=== PATIENT | female | born 1945 | race Caucasian/White ===

== ENCOUNTER 2016-04-26 14:46 | Outpatient (CLI) | payer MEDICARE, OTHER | END 2016-04-26 14:47 | disposition home or self-care (01) | DX: R51 Headache (principal); R53.83 Other fatigue; H92.02 Otalgia, left ear ==

== ENCOUNTER 2016-05-18 21:01 | Outpatient (CLI) | payer MEDICARE, OTHER | END 2016-05-18 21:02 | disposition home or self-care (01) | DX: M79.661 Pain in right lower leg (principal) ==

== ENCOUNTER 2016-07-13 12:25 | Outpatient (CLI) | payer MEDICARE, OTHER | END 2016-07-13 12:26 | disposition short-term general hospital (02) | LOC: EMS 12:25 | PROVIDERS: ATTEND Surgery | DX: R07.89 Other chest pain (principal) | CPT/HCPCS: A0425; A0427 ==

== ENCOUNTER 2016-07-21 15:25 | Outpatient (CLI) | payer MEDICARE, OTHER ==
--- NOTE | 2016-07-22 13:33 | Ultrasound Report ---
RENAL ULTRASOUND: 07/21/2016 CLINICAL INDICATION: Atypical pain. TECHNIQUE: Real-time sonographic vascular imaging was performed by the intake counselor through the retrop eritoneum utilizing both color-flow and Doppler spectral analysis. Multiple representative phlebotomy services static im ages were saved for review. FINDINGS: The right kidney measures 10.6 x 4.3 x 3.7 cm, and the left kidney measures 11.8 x 5.1 x 4 .6 cm. Both kidneys demonstrate normal renal echotexture. No hydronephrosis, focal renal lesion, or p erinephric collection is present. The abdominal aorta is normal in caliber, measuring 2.1 x 2.0 x 1.8 cm. The iliacs are normal in chris cyala. No free fluid is seen. Prevoid, the urinary bladder measures 4.5 x 4.2 x 6.3 cm, yielding a prevoid volume of 62 mL. Bilater al ureteral jets are visualized. The bladder wall appears normal. No postvoid residual is present. IMPRESSION: NORMAL RETROPERITONEAL ULTRASOUND. NO EVIDENCE OF HYDRONEPHROSIS OR ABDOMINAL AORTIC ANE URYSM. JOB #: [id number] EXT JOB #:[id number]
== END 2016-07-21 15:26 | disposition home or self-care (01) ==
LOC: DI 15:25
PROVIDERS: ATTEND Physician Assistant Medical
DX: R07.89 Other chest pain (principal)
CPT/HCPCS: 76770

== ENCOUNTER 2016-12-23 11:14 | Outpatient (CLI) | payer MEDICARE, OTHER | END 2016-12-23 11:15 | disposition home or self-care (01) | LOC: LAB.F 11:14 | PROVIDERS: ATTEND Physician Assistant Medical | DX: E03.9 Hypothyroidism, unspecified (principal) | CPT/HCPCS: 36415; 84443 ==

== ENCOUNTER 2017-01-12 09:04 | Outpatient (CLI) | payer MEDICARE, OTHER ==
[2017-01-12 12:28] LABS: ALBUMIN/GLOBULIN RATIO 1.3 (1.0-2.2); BILIRUBIN,TOTAL 0.7 mg/dL (0.2-1.0); CALCIUM 8.9 mg/dL (8.5-10.3); CREATININE 0.8 mg/dL (0.4-1.0); POTASSIUM 3.8 mmol/L (3.5-5.0); TOTAL PROTEIN 7.2 g/dL (6.7-8.2)
[2017-01-12 12:41] LABS: HEMOGLOBIN A1C 0.65 g/dL
== END 2017-01-12 09:05 | disposition home or self-care (01) ==
LOC: LAB.F 09:04
PROVIDERS: ATTEND Family Medicine
DX: R51 Headache (principal); E11.9 Type 2 diabetes mellitus without complications; I10 Essential (primary) hypertension; E03.9 Hypothyroidism, unspecified
CPT/HCPCS: 36415; 80053; 83036

== ENCOUNTER 2017-03-14 10:11 | Outpatient (CLI) | payer MEDICARE, OTHER ==
[2017-03-14 20:05] LABS: ALBUMIN 4.1 g/dL (3.2-5.5); ALBUMIN/GLOBULIN RATIO 1.4 (1.0-2.2); ALKALINE PHOSPHATASE 73 IU/L (42-121); ALT ALANINE AMINOTRANSFERASE 18 IU/L (10-60); AST ASPARTATE AMINOTRANSFERASE 22 IU/L (10-42); BILIRUBIN,TOTAL 0.5 mg/dL (0.2-1.0); BUN - BLOOD UREA NITROGEN 16 mg/dL (6-20); CALCIUM 8.9 mg/dL (8.5-10.3); CARBON DIOXIDE - CO2 23 mmol/L (21-32); CHLORIDE 106 mmol/L (101-111); CREATININE 0.9 mg/dL (0.4-1.0); GFR - MDRD 62 (>89); GLUCOSE 99 mg/dL (70-100); MAGNESIUM 1.9 mg/dL (1.7-2.8); SODIUM 137 mmol/L (135-145); TOTAL PROTEIN 7.1 g/dL (6.7-8.2)
== END 2017-03-14 10:12 | disposition home or self-care (01) ==
LOC: LAB.F 10:11
PROVIDERS: ATTEND Physician Assistant Medical
DX: R00.0 Tachycardia, unspecified (principal); I10 Essential (primary) hypertension
CPT/HCPCS: 36415; 80053; 83735; 84443

== ENCOUNTER 2017-09-15 11:24 | Outpatient (CLI) | payer MEDICARE, OTHER | END 2017-09-15 11:25 | disposition home or self-care (01) | LOC: LAB.F 11:24 | PROVIDERS: ATTEND Physician Assistant Medical | DX: E03.9 Hypothyroidism, unspecified (principal); R61 Generalized hyperhidrosis | CPT/HCPCS: 36415; 84443 ==

== ENCOUNTER 2017-10-24 10:45 | Outpatient (CLI) | payer MEDICARE, OTHER ==
[2017-10-25 19:31] LABS: FREE T4 (FREE THYROXINE) 1.14 ng/dL (0.58-1.64)
[2017-10-25 19:33] LABS: TOTAL T3 0.78 ng/mL (0.87-1.78)
== END 2017-10-24 10:46 | disposition home or self-care (01) ==
LOC: LAB.F 10:45
PROVIDERS: ATTEND Physician Assistant Medical
DX: E03.9 Hypothyroidism, unspecified (principal)
CPT/HCPCS: 36415; 84439; 84443; 84480; 84481

== ENCOUNTER 2017-12-18 13:40 | Outpatient (CLI) | payer MEDICARE, OTHER | END 2017-12-18 13:41 | disposition home or self-care (01) | LOC: LAB.F 13:40 | PROVIDERS: ATTEND Physician Assistant Medical | DX: E03.9 Hypothyroidism, unspecified (principal) | CPT/HCPCS: 36415; 84443 ==

== ENCOUNTER 2018-04-30 09:02 | Outpatient (CLI) | payer MEDICARE, OTHER ==
[2018-04-30 18:34] LABS: BASOPHILS # (AUTO) 0.1 10^3/uL (0.0-0.1); BASOPHILS % (AUTO) 1.1 %; EOSINOPHILS # (AUTO) 0.2 10^3/uL (0.0-0.7); EOSINOPHILS % (AUTO) 3.9 %; HGB - HEMOGLOBIN 13.9 g/dL (12.0-16.0); LYMPHOCYTES # (AUTO) 1.2 10^3/uL (1.5-3.5); LYMPHOCYTES % (AUTO) 23.7 %; MEAN CORPUSCULAR HEMOGLOBIN 30.4 pg (27.0-31.0); MEAN CORPUSCULAR HGB CONC 32.8 g/dL (32.0-36.0); MEAN CORPUSCULAR VOLUME 92.7 fL (81.0-99.0); MEAN PLATELET VOLUME 10.4 fL (7.9-10.8); MONOCYTES # (AUTO) 0.5 10^3/uL (0.0-1.0); MONOCYTES % (AUTO) 9.1 %; NEUTROPHILS # (AUTO) 3.1 10^3/uL (1.5-6.6); NEUTROPHILS % (AUTO) 62.2 %; PLT - PLATELET COUNT 225 10^3/uL (130-450); RED BLOOD COUNT 4.56 10^6/uL (4.20-5.40); RED CELL DISTRIBUTION WIDTH 13.5 % (12.0-15.0)
[2018-04-30 18:48] LABS: ALBUMIN 3.7 g/dL (3.2-5.5); ALBUMIN/GLOBULIN RATIO 1.2 (1.0-2.2); BILIRUBIN,TOTAL 0.6 mg/dL (0.2-1.0); CREATININE 0.8 mg/dL (0.4-1.0); TOTAL PROTEIN 6.7 g/dL (6.7-8.2)
[2018-04-30 19:39] LABS: CREATININE,URINE 169.1 mg/dL; MICROALBUMIN,URINE 2.2 mg/dL (0-300.0)
[2018-04-30 20:43] LABS: HB2 TOTAL 14.6 g/dL; HEMOGLOBIN A1C 0.6 g/dL; HEMOGLOBIN A1C % 5.9 % (4.6-6.2)
== END 2018-04-30 09:03 | disposition home or self-care (01) ==
LOC: LAB.F 09:02
PROVIDERS: ATTEND Physician Assistant Medical
DX: E03.9 Hypothyroidism, unspecified (principal); E11.9 Type 2 diabetes mellitus without complications; I10 Essential (primary) hypertension
CPT/HCPCS: 36415; 80053; 82043; 82570; 83036; 84443; 85025

== ENCOUNTER 2018-05-23 10:57 | Outpatient (CLI) | payer MEDICARE, OTHER ==
[2018-05-23 17:23] LABS: BILIRUBIN,URINE NEGATIVE (NEGATIVE); GLUCOSE, URINE (UA) NEGATIVE (NEGATIVE); KETONES,URINE (UA) NEGATIVE (NEGATIVE); LEUKOCYTE ESTERASE, URINE NEGATIVE (NEGATIVE); NITRITE,URINE NEGATIVE (NEGATIVE); OCCULT BLOOD,URINE NEGATIVE (NEGATIVE); PROTEIN,URINE NEGATIVE (NEGATIVE); UROBILINOGEN,URINE 0.2 (NORMAL) E.U./dL (NORMAL)
[2018-05-23 17:34] LABS: CLARITY,URINE CLEAR (CLEAR); RBC,URINE None Seen /HPF (0-5); SQUAMOUS EPITHELIAL CELL,UR RARE Squamous (<= Few)
[2018-05-23 17:35] LABS: BACTERIA,URINE None Seen /HPF (None Seen)
== END 2018-05-23 10:58 | disposition home or self-care (01) ==
LOC: LAB.F 10:57
PROVIDERS: ATTEND Registered Nurse
DX: N39.41 Urge incontinence (principal)
CPT/HCPCS: 81001

== ENCOUNTER 2018-06-04 08:33 | Outpatient (CLI) | payer MEDICARE, OTHER ==
[2018-06-04 10:46] LABS: CHOLESTEROL 169 mg/dL; HDL CHOLESTEROL 57 mg/dL; LDL CHOLESTEROL,CALCULATED 96 mg/dL; LDL/HDL RATIO 1.7 (<4.4); VLDL CHOLESTEROL 16 mg/dL
[2018-06-04 11:05] LABS: HB2 TOTAL 14.6 g/dL; HEMOGLOBIN A1C 0.6 g/dL; HEMOGLOBIN A1C % 5.9 % (4.6-6.2)
== END 2018-06-04 08:34 | disposition home or self-care (01) ==
LOC: LAB.F 08:33
PROVIDERS: ATTEND Physician Assistant Medical
DX: E11.9 Type 2 diabetes mellitus without complications (principal); E78.5 Hyperlipidemia, unspecified
CPT/HCPCS: 36415; 80061; 83036; 83721

== ENCOUNTER 2018-12-05 10:47 | Outpatient (CLI) | payer MEDICARE, OTHER ==
[2018-12-05 17:38] LABS: BASOPHILS # (AUTO) 0.1 10^3/uL (0.0-0.1); BASOPHILS % (AUTO) 0.8 %; EOSINOPHILS # (AUTO) 0.4 10^3/uL (0.0-0.7); HGB - HEMOGLOBIN 13.8 g/dL (12.0-16.0); LYMPHOCYTES # (AUTO) 1.3 10^3/uL (1.5-3.5); MEAN CORPUSCULAR HEMOGLOBIN 31.1 pg (27.0-31.0); MEAN CORPUSCULAR HGB CONC 32.8 g/dL (32.0-36.0); MEAN CORPUSCULAR VOLUME 94.8 fL (81.0-99.0); MEAN PLATELET VOLUME 12.7 fL (7.9-10.8); MONOCYTES # (AUTO) 0.6 10^3/uL (0.0-1.0); MONOCYTES % (AUTO) 10.4 %; NEUTROPHILS # (AUTO) 3.6 10^3/uL (1.5-6.6); NEUTROPHILS % (AUTO) 60.5 %; PLT - PLATELET COUNT 240 10^3/uL (130-450); RED BLOOD COUNT 4.44 10^6/uL (4.20-5.40)
[2018-12-05 18:08] LABS: CREATININE,URINE 108.4 mg/dL; MICROALBUM/CREATININE RATIO,UR 3.7 ug/mg (<30.0); MICROALBUMIN,URINE 0.4 mg/dL (0-300.0)
[2018-12-05 18:11] LABS: ALBUMIN 3.9 g/dL (3.2-5.5); ALBUMIN/GLOBULIN RATIO 1.4 (1.0-2.2); ALKALINE PHOSPHATASE 62 IU/L (42-121); ALT ALANINE AMINOTRANSFERASE 19 IU/L (10-60); AST ASPARTATE AMINOTRANSFERASE 19 IU/L (10-42); BILIRUBIN,TOTAL 0.6 mg/dL (0.2-1.0); BUN - BLOOD UREA NITROGEN 14 mg/dL (6-20); CALCIUM 8.9 mg/dL (8.5-10.3); CARBON DIOXIDE - CO2 30 mmol/L (21-32); CHLORIDE 104 mmol/L (101-111); CHOL/HDL RATIO 3.5 (<4.4); CHOLESTEROL 191 mg/dL; CREATININE 0.8 mg/dL (0.4-1.0); GFR - MDRD 70 (>89); GLUCOSE 109 mg/dL (70-100); HDL CHOLESTEROL 55 mg/dL; LDL CHOLESTEROL,CALCULATED 117 mg/dL; LDL/HDL RATIO 2.1 (<4.4); SODIUM 138 mmol/L (135-145); TOTAL PROTEIN 6.7 g/dL (6.7-8.2); VLDL CHOLESTEROL 19 mg/dL
[2018-12-05 18:18] LABS: HB2 TOTAL 13.8 g/dL; HEMOGLOBIN A1C 0.58 g/dL
== END 2018-12-05 10:48 | disposition home or self-care (01) ==
LOC: LAB.S 10:47
PROVIDERS: ATTEND Physician Assistant Medical
DX: I10 Essential (primary) hypertension (principal); E11.9 Type 2 diabetes mellitus without complications; E78.5 Hyperlipidemia, unspecified; E03.9 Hypothyroidism, unspecified
CPT/HCPCS: 36415; 80053; 80061; 82043; 82570; 83036; 83721; 84443; 85025

== ENCOUNTER 2019-01-15 08:45 | Outpatient (CLI) | payer MEDICARE, OTHER ==
--- NOTE | 2019-01-15 10:04 | Mammography Report ---
Reason: ROUTINE MAMMO Procedure Date: 01/15/2019 Accession Number: [id number] / [id number] Procedure: [facility] - Screening Mammo w/Quinten CPT Code: Final Report FULL RESULT: EXAM: Screening Mammo w/Quinten DATE: 01/15/2019 9:10 AM CLINICAL HISTORY: Routine screening. No reported personal history of breast cancer. Family history breast cancer in mother at age 68. TECHNIQUE: (B) - Bilateral CC and MLO views were obtained. COMPARISON: 01/12/2016 through 10/26/2011. PARENCHYMAL PATTERN: (A) - The breasts demonstrate scattered fibroglandular densities bilaterally. FINDINGS: Bilateral breasts: There are no suspicious masses, calcifications, or areas of distortion. IMPRESSION: Negative examination. BI-RADS category 1. RECOMMENDATION: (ANNUAL) - Recommend routine annual screening mammography. BI-RADS CATEGORY: (1) - Negative. STANDARD QUALIFYING STATEMENTS: 1. This examination was not reviewed with the aid of Computer-Aided Detection (CAD). 2. A negative or benign imaging report should not preclude biopsy if clinically suspicious findings are present. 3. Dense breasts may obscure an underlying neoplasm. 4. This examination was reviewed with the aid of 3D breast imaging (tomosynthesis).
== END 2019-01-15 08:46 | disposition home or self-care (01) ==
LOC: DI 08:45
DX: Z12.31 Encounter for screening mammogram for malignant neoplasm of breast (principal); Z80.3 Family history of malignant neoplasm of breast
CPT/HCPCS: 77063; 77067

== ENCOUNTER 2019-03-10 12:37 | Outpatient (CLI) | payer MEDICARE, OTHER | END 2019-03-10 12:38 | disposition critical access hospital (66) | LOC: EMS 12:37 | PROVIDERS: ATTEND Surgery | DX: R07.9 Chest pain, unspecified (principal) | CPT/HCPCS: A0425; A0427 ==

== ENCOUNTER 2019-03-10 13:06 | Emergency (ER) | payer MEDICARE, OTHER ==
[2019-03-10] MEDS ORDERED: HYDROmorphone 1 MG/ML CARPUJECT IVP STA (13:36)
[2019-03-10] MEDS ORDERED: LABETALOL 20 MG/4 ML SYRINGE IVP STA (13:37)
--- NOTE | 2019-03-10 13:40 | ED Physician Documentation ---
History of Present Illness - Stated complaint Stated Complaint: ABD PX - Chief complaint Chief Complaint: Cardiac - History obtained from History obtained from: Patient, EMS - History of Present Illness Timing: How many hours ago (2.5) Pain level max: 8 Pain level now: 7 - Additonal information Additional information: was having a bowel movement and felt L sided chest pain radiating to her back. had nausea as well. took her BP meds last night. Worse with movement and better with rest. no cardiac history. no numbness or tingling. pain with movement and breathing. Review of Systems Ten Systems: 10 systems reviewed and negative Constitutional: denies: Fever, Chills Throat: denies: Sore throat Cardiac: reports: Chest pain / pressure Respiratory: denies: Cough, Wheezing GI: denies: Nausea, Vomiting, Diarrhea Skin: denies: Rash Musculoskeletal: denies: Neck pain Neurologic: denies: Focal weakness, Numbness, Confused, Altered mental status, Headache PD PAST MEDICAL HISTORY - Past Medical History Cardiovascular: Hypertension Respiratory: None Neuro: None Endocrine/Autoimmune: HyPOthyroidism GI: GERD SPECIALTY MANUFACTURING SUPERVISOR: Endometriosis : Incontinence Psych: Anxiety Musculoskeletal: Osteoarthritis Derm: None - Past Surgical History Past Surgical History: Yes General: Cholecystectomy, Appendectomy /SPECIALTY MANUFACTURING SUPERVISOR: Hysterectomy - Present Medications Home Medications: Ambulatory Orders Medication Instructions Recorded Confirmed Darifenacin Hydrobromide [Enablex] 7.5 mg PO DAILY 03/10/19 03/10/19 Hydrocodone/Acetaminophen 1 - 2 each PO Q6H PRN #10 tablet 03/10/19 [Hydrocodon-Acetaminophen 5-325] - Allergies Allergies/Adverse Reactions: Allergies Allergy/AdvReac Type Severity Reaction Status Date / Time Penicillins Allergy Hives Verified 03/10/19 13:12 Sulfa (Sulfonamide Allergy Rash Verified 03/10/19 13:12 Antibiotics) - Social History Does the pt smoke?: No Smoking Status: Never smoker Does the pt drink ETOH?: Yes Does the pt have substance abuse?: No - Immunizations Immunizations are current?: Yes - POLST Patient has POLST: No PD ED PE NORMAL - Vitals Vital signs reviewed: Yes - General General: Alert and oriented X 3, No acute distress, Well developed/nourished - HEENT HEENT: PERRL, Ears normal, Moist mucous membranes, Pharynx benign - Neck Neck: Supple, no meningeal sign - Cardiac Cardiac: RRR, Strong equal pulses - Respiratory Respiratory: No respiratory distress, Clear bilaterally - Abdomen Abdomen: Soft, Non tender, Non distended - Back Back: No spinal TTP, Other (TTP posterior L ribs approx 5-8. no crepitus or ecchymosis. ) - Derm Derm: Warm and dry - Extremities Extremities: No edema, No calf tenderness / cord - Neuro Neuro: Alert and oriented X 3, certified wellness program manager 2-12 intact, No motor deficit, No sensory deficit - Psych Psych: Normal mood, Normal affect Results - Vitals Vitals: Vital Signs - 24 hr 03/10/19 03/10/19 03/10/19 13:12 13:24 13:51 Temperature 36.1 C L 36.5 C Heart Rate 62 56 L 53 L Respiratory 16 18 18 Rate Blood Pressure 182/78 H 200/85 H 150/70 H O2 Saturation 98 99 96 03/10/19 14:05 Temperature Heart Rate 56 L Respiratory 16 Rate Blood Pressure 142/67 H O2 Saturation 92 Oxygen O2 Source Room air - EKG (time done) 1315 Rate: Rate (enter#) (55) Rhythm: NSR [place]: Normal Intervals: Normal MO QRS: Normal Ischemia: Q waves (III, aVF), Other (late R wave transition) Compare to prior EKG: Unchanged from prior EKG (2017) - Labs Labs: Laboratory Tests 03/10/19 03/10/19 03/10/19 13:39 13:51 13:51 WBC 6.9 RBC 4.57 Hgb 14.0 Hct 43.0 MCV 94.1 MCH 30.6 MCHC 32.6 RDW 13.6 Plt Count 230 MPV 11.3 H Neut # (Auto) 4.7 Lymph # (Auto) 1.2 L [place] # (Auto) 0.6 Eos # (Auto) 0.3 Baso # (Auto) 0.1 Absolute Nucleated RBC 0.00 Nucleated RBC % 0.0 Sodium 138 Potassium 4.1 Chloride 104 Carbon Dioxide 28 Anion Gap 6.0 BUN 17 Creatinine 0.8 Estimated GFR (MDRD) 70 L Glucose 97 Calcium 8.8 Total Bilirubin 0.7 AST 18 ALT 15 Alkaline Phosphatase 68 Troponin I High Sens Total Protein 6.9 Albumin 3.9 Globulin 3.0 Albumin/Globulin Ratio 1.3 Lipase 36 Urine Color YELLOW Urine Clarity CLEAR Urine pH 7.5 Ur Specific [place] 1.015 Urine Protein NEGATIVE Urine Glucose (UA) NEGATIVE Urine Ketones NEGATIVE Urine Occult Blood NEGATIVE Urine Nitrite NEGATIVE Urine Bilirubin NEGATIVE Urine Urobilinogen 0.2 (NORMAL) Ur Leukocyte Esterase NEGATIVE Ur Microscopic Review NOT INDICATED Urine Culture Comments NOT INDICATED 03/10/19 03/10/19 13:51 15:23 WBC RBC Hgb Hct MCV MCH MCHC RDW Plt Count MPV Neut # (Auto) Lymph # (Auto) [place] # (Auto) Eos # (Auto) Baso # (Auto) Absolute Nucleated RBC Nucleated RBC % Sodium Potassium Chloride Carbon Dioxide Anion Gap BUN Creatinine Estimated GFR (MDRD) Glucose Calcium Total Bilirubin AST ALT Alkaline Phosphatase Troponin I High Sens 2.5 2.4 Total Protein Albumin Globulin Albumin/Globulin Ratio Lipase Urine Color Urine Clarity Urine pH Ur Specific [place] Urine Protein Urine Glucose (UA) Urine Ketones Urine Occult Blood Urine Nitrite Urine Bilirubin Urine Urobilinogen Ur Leukocyte Esterase Ur Microscopic Review Urine Culture Comments - Rads (name of study) cxr Radiology: Prelim report reviewed, EMP read contemporaneously, See rad report (no acute disease) angio chest Radiology: Prelim report reviewed, EMP read contemporaneously, See rad report (no acute abnormalities.) angio abd/pelvis Radiology: Prelim report reviewed, EMP read contemporaneously, See rad report (no acute abnormality.) PD MEDICAL DECISION MAKING - ED course Complexity details: reviewed results, re-evaluated patient, considered differential (No ST elevation [place], no aortic dissection, no PE, no tension pneumothorax, no aortic aneurysm), d/w patient, d/w family ED course: 73-year-old female with left-sided chest wall and back pain. Symptoms resolved with a dose of Dilaudid here. Blood pressure improved. No evidence of aortic dissection, pulmonary embolus, acute coronary syndrome. Negative high- sensitivity troponin x2. Patient is asymptomatic now. Patient counseled regarding signs and symptoms for which I believe and urgent re-evaluation would be necessary. Patient with good understanding of and agreement to plan and is comfortable going home at this time This document was made in part using voice recognition software. While efforts are made to proofread this document, sound alike and grammatical errors may occur. Departure - Departure Disposition: 01 Home, Self Care Clinical Impression: Atypical chest pain Condition: Good Instructions: ED Chest Pain Atypical Unkn Cause Follow-Up: Lolita Brandt PA-C [Primary Care Provider] - Within 1 week Prescriptions: Hydrocodone/Acetaminophen [Hydrocodon-Acetaminophen 5-325] 1 - 2 each PO Q6H PRN #10 tablet PRN Reason: pain Comments: The cause of your symptoms is unclear today. Return if you worsen. You should follow-up with your doctor for a cardiac stress test within the next week Do not drink alcohol or drive while on narcotic pain medicine. Note that many narcotic pain relievers also contain tylenol/acetaminophen. Please ensure that your total dose of acetaminophen from all sources does not exceed 3 grams (3000mg) per day. You may constipated on this medication, take a stool softener such as "Colace" twice a day while you are on it. Also recommend a zvzi-sbd-ncddibz laxative such as senna or MiraLAX any day that you do not have a bowel movement. If you received narcotic pain medication in the emergency department, do not drive or operate machinery for the next 24 hours.
[2019-03-10 13:53] LABS: BILIRUBIN,URINE NEGATIVE (NEGATIVE); GLUCOSE, URINE (UA) NEGATIVE (NEGATIVE); KETONES,URINE (UA) NEGATIVE (NEGATIVE); LEUKOCYTE ESTERASE, URINE NEGATIVE (NEGATIVE); NITRITE,URINE NEGATIVE (NEGATIVE); OCCULT BLOOD,URINE NEGATIVE (NEGATIVE); PH,URINE 7.5 PH (5.0-7.5); PROTEIN,URINE NEGATIVE (NEGATIVE); UROBILINOGEN,URINE 0.2 (NORMAL) E.U./dL (NORMAL)
[2019-03-10] MEDS ORDERED: IOVERSOL 320 100 ML VIAL IVP ONE ×2 (13:53→15:07)
[2019-03-10 13:55] LABS: CLARITY,URINE CLEAR (CLEAR)
[2019-03-10 13:56] LABS: BASOPHILS # (AUTO) 0.1 10^3/uL (0.0-0.1); BASOPHILS % (AUTO) 0.9 %; EOSINOPHILS # (AUTO) 0.3 10^3/uL (0.0-0.7); EOSINOPHILS % (AUTO) 4.3 %; LYMPHOCYTES # (AUTO) 1.2 10^3/uL (1.5-3.5); MEAN CORPUSCULAR HEMOGLOBIN 30.6 pg (27.0-31.0); MEAN CORPUSCULAR HGB CONC 32.6 g/dL (32.0-36.0); MEAN CORPUSCULAR VOLUME 94.1 fL (81.0-99.0); MEAN PLATELET VOLUME 11.3 fL (7.9-10.8); MONOCYTES # (AUTO) 0.6 10^3/uL (0.0-1.0); MONOCYTES % (AUTO) 8.4 %; NEUTROPHILS # (AUTO) 4.7 10^3/uL (1.5-6.6); NEUTROPHILS % (AUTO) 68.1 %; PLT - PLATELET COUNT 230 10^3/uL (130-450); RED BLOOD COUNT 4.57 10^6/uL (4.20-5.40); RED CELL DISTRIBUTION WIDTH 13.6 % (12.0-15.0); WHITE BLOOD COUNT 6.9 x10^3/uL (4.8-10.8)
[2019-03-10 14:10] LABS: ALBUMIN 3.9 g/dL (3.2-5.5); ALBUMIN/GLOBULIN RATIO 1.3 (1.0-2.2); BILIRUBIN,TOTAL 0.7 mg/dL (0.2-1.0); CALCIUM 8.8 mg/dL (8.5-10.3); CREATININE 0.8 mg/dL (0.4-1.0); TOTAL PROTEIN 6.9 g/dL (6.7-8.2)
--- NOTE | 2019-03-10 15:16 | CT Report ---
Reason: chest pain, to back Procedure Date: 03/10/2019 Accession Number: [id number] / [id number] Procedure: CT - ANGIO CHEST W/WO CPT Code: Final Report FULL RESULT: EXAM: CT ANGIOGRAM CHEST EXAM DATE: 03/10/2019 02:44 PM. CLINICAL HISTORY: Chest pain, to back. COMPARISON: None. TECHNIQUE: Routine helical imaging was performed through the chest in the pulmonary arterial phase. IV Contrast: OPTI 320 100ML. Reconstructions: Coronal 3-D MIP reconstructions.Sagittal and coronal. In accordance with CT protocol optimization, one or more of the following dose reduction techniques were utilized for this exam: automated exposure control, adjustment of mA and/or KV based on patient size, or use of iterative reconstructive technique. FINDINGS: Vascular: Noncontrast imaging of the thoracic aorta demonstrates no evidence of acute intramural hematoma. No abnormal atheromatous calcifications. There is no evidence of aortic dissection or aneurysm. The visualized portions of the great vessels are normal. There is no evidence of acute pulmonary embolism. Lungs/Pleura: The lungs demonstrate a mosaic parenchymal pattern. There is no evidence of lobar consolidation. No pleural effusion. No suspicious lung nodules are seen. No acute central airway abnormalities. There is no evidence of pneumothorax. Mediastinum: Normal. No cardiac enlargement or adenopathy. Upper Abdomen: Findings are detailed separately. Other: No acute bony abnormalities are seen. IMPRESSION: 1. Negative CT angiogram chest. There is no evidence of thoracic aortic dissection or aneurysm. 2. The lungs demonstrate a mosaic parenchymal pattern. This could represent air trapping secondary to small to medium airway disease. No acute pulmonary CT process. 3. Findings within the abdomen and pelvis are detailed separately. RADIA
--- NOTE | 2019-03-10 15:18 | XRAY Report ---
Reason: Chest Pain Procedure Date: 03/10/2019 Accession Number: [id number] / [id number] Procedure: XR - Chest 1 View X-Ray CPT Code: 20298 Final Report FULL RESULT: EXAM: CHEST RADIOGRAPHY EXAM DATE: 03/10/2019 01:49 PM. CLINICAL HISTORY: Chest Pain. COMPARISON: 05/29/2012 6:47 PM CHEST ANGIO 03/10/2019 2:31 PM. TECHNIQUE: 1 view. FINDINGS: LUNGS: The lungs are clear. PLEURA: No significant pleural effusion. No clinically significant pneumothorax. MEDIASTINUM: The cardiomediastinal silhouette is unremarkable. BONES: No suspicious osseous lesions. IMPRESSION: No acute cardiopulmonary abnormality. RADIA
--- NOTE | 2019-03-10 15:21 | CT Report ---
Reason: back/chest pain Procedure Date: 03/10/2019 Accession Number: [id number] / [id number] Procedure: CT - ANGIO ABDOMEN W/WO CPT Code: Final Report FULL RESULT: EXAM: CT ANGIOGRAM ABDOMEN AND PELVIS WITH CONTRAST EXAM DATE: 03/10/2019 02:44 PM. CLINICAL HISTORY: Back/chest pain. COMPARISONS: CHEST ANGIO 03/10/2019 2:31 PM. TECHNIQUE: Routine helical CT angiogram imaging was performed through the abdomen and pelvis in the arterial phase. IV contrast: OPTI 320 100ML. Enteric contrast: No. Reconstructions: Coronal, sagittal, and 3D MIP reconstructions. In accordance with CT protocol optimization, one or more of the following dose reduction techniques were utilized for this exam: automated exposure control, adjustment of mA and/or KV based on patient size, or use of iterative reconstructive technique. FINDINGS: Vasculature: Normal. No aneurysm, dissection, or significant atherosclerotic disease of the abdominal aorta. The visualized mesenteric and solid organ vascular structures are also within normal limits. Lung Bases: Findings are detailed separately. Abdominal Solid Organs: The liver, spleen, pancreas, adrenal glands, gallbladder and kidneys are normal in size and demonstrate no masses or abnormal enhancement. There is mild dilatation of the mid and distal common bile duct. There is a metallic surgical clip within the gallbladder fossa. Peritoneal Cavity: No dilated or thick-walled bowel is seen. There is a small hiatal hernia. There is moderate volume stool within colon. No mesenteric inflammation. No intraperitoneal free air. No enlarged mesenteric or retroperitoneal lymph nodes. Pelvis: No acute pelvic organ abnormalities are seen. Bones: No acute bony abnormalities are seen. There is mild to moderate multilevel lumbar spine degenerative disease. Other: None. IMPRESSION: Negative abdomen and pelvis CT angiogram. No aneurysm or dissection. RADIA
[2019-03-10] MEDS ORDERED: HYDROcod/ACETAM 5/325 MG TABLET PO STA (15:53)
[2019-03-10 15:58] VITALS: BP 139/74
== END 2019-03-10 16:10 | disposition home or self-care (01) ==
LOC: EDUNIT# → ED 13:06
DX: R07.89 Other chest pain (principal); I10 Essential (primary) hypertension
CPT/HCPCS: 36415; 71045; 71275; 74175; 80053; 81003; 83690; 84484; 85025; 93005; 96374; 99284; A9270; J1170; Q9967; 81001; 87086

== ENCOUNTER 2020-01-20 15:33 | Outpatient (CLI) | payer MEDICARE, OTHER ==
--- NOTE | 2020-01-22 15:35 | Mammography Report ---
BILATERAL DIGITAL SCREENING MAMMOGRAM 3D/2D: 01/20/2020 CLINICAL: Family history of breast cancer. Routine screening. Comparison is made to exams dated: 01/15/2019 mammogram, 01/12/2016 mammogram, 03/27/2015 mammogram, a nd 01/08/2015 mammogram - [facility]. There are scattered fibroglandular elements i n both breasts. No significant masses, calcifications, or other findings are seen in either breast. There has been no significant interval change. IMPRESSION: NEGATIVE There is no mammographic evidence of malignancy. A 1 year screening mammogram is recommended. This exam was interpreted at Station ID: [id number]. NOTE: For mammograms, a report in lay terms will be sent to the patient. Approximately 15% of breast malignancies will not be visualized mammographically. In the management of a palpable breast mass, a negative mammogram must not discourage biopsy of a clinically suspicious lesion. Electronically Signed By: Sharonda fields/penrad:01/21/2020 16:39:56 ACR BI-RADS Category 1: Negative 3341F PARENCHYMAL PATTERN: (A) - The breast(s) demonstrate(s) scattered fibroglandular densities. BI-RADS CATEGORY: (1) - 1 RECOMMENDATION: (ANNUAL) - Recommend routine annual screening mammography. 20210120 1 year screening LATERALITY: (B)
== END 2020-01-20 15:34 | disposition home or self-care (01) ==
LOC: DI 15:33
DX: Z12.31 Encounter for screening mammogram for malignant neoplasm of breast (principal); Z80.3 Family history of malignant neoplasm of breast
CPT/HCPCS: 77063; 77067

== ENCOUNTER 2020-02-13 10:39 | Outpatient (CLI) | payer MEDICARE, OTHER ==
--- NOTE | 2020-02-13 11:22 | XRAY Report ---
PROCEDURE: Knee 3 View LT INDICATIONS: DJD, KNEE, LEFT TECHNIQUE: Multiple views of the left knee. COMPARISON: None. FINDINGS: Bones: 3 views of the left knee were performed and demonstrate tricompartmental degenerative changes and osteophytes with medial joint space narrowing and subchondral sclerosis. Soft tissues: No joint effusion. No suspicious soft tissue calcifications. IMPRESSION: Tricompartmental degenerative changes consistent with osteoarthritis. Reviewed by: Hood Shaver on 02/13/2020 11:20 AM [facility] Approved by: Hood Shaver on 02/13/2020 11:20 AM [facility] Station ID: [id number]
--- NOTE | 2020-02-13 13:46 | XRAY Report ---
PROCEDURE: Hip w/Pelvis 2-3V LT INDICATIONS: HIP JOINT PAIN, LEFT TECHNIQUE: AP pelvis with lateral view(s) of the left hip(s). COMPARISON: None. FINDINGS: Bones: No fractures or dislocations. Pelvic ring appears intact. No suspicious bony lesions. The left sacroiliac joint and symphysis pubis and visualized lower lumbar spine have degenerative changes . The left hip has no significant degenerative changes. Soft tissues: The visualized bowel gas pattern is normal. No suspicious soft tissue calcifications. IMPRESSION: No significant degenerative changes. No acute abnormality. Reviewed by: Hood Shaver on 02/13/2020 1:44 PM [facility] Approved by: Hood Shaver on 02/13/2020 1:44 PM PST Station ID: [id number]
== END 2020-02-13 10:40 | disposition home or self-care (01) ==
LOC: DI.S 10:39
PROVIDERS: ATTEND Physician Assistant
DX: M17.12 Unilateral primary osteoarthritis, left knee (principal); M25.552 Pain in left hip

== ENCOUNTER 2020-03-30 15:15 | Outpatient (CLI) | payer MEDICARE, OTHER ==
--- NOTE | 2020-03-30 12:36 | XRAY Report ---
PROCEDURE: Hip w/Pelvis 1V LT INDICATIONS: L HIP PX TECHNIQUE: AP pelvis with contrast lateral view of the left hip. COMPARISON: Left hip radiographs dated 02/13/2020 FINDINGS: Bones: No acute fractures or dislocations. Pelvic ring appears intact. No suspicious bony lesions. Multilevel degenerative changes are seen in the included spine. Mild degenerative changes are seen in the pubic symphysis and sacroiliac joints. Soft tissues: Moderate stool is seen throughout the colon. No suspicious soft tissue calcifications. Cholecystectomy clips are present. IMPRESSION: No acute osseous abnormality. Multilevel degenerative changes are seen in the included s pine. No significant change is seen when compared to the radiographs from 02/13/2020. Reviewed by: Michael Perry MD on 03/30/2020 12:35 PM PST Approved by: Michael Perry MD on 03/30/2020 12:35 PM PST Station ID: [id number]
--- NOTE | 2020-03-30 12:39 | XRAY Report ---
PROCEDURE: Knee 4 View LT INDICATIONS: L KNEE DJD TECHNIQUE: 4 views of the left knee were acquired. COMPARISON: Left knee radiographs 02/13/2020 FINDINGS: Bones: No acute fractures or dislocations. No suspicious bony lesions. Severe joint space narrowin g is seen in the medial femorotibial compartment with subchondral sclerosis and marginal osteophyte f ormation. Large osteophytes are seen at the lateral and anterior compartments. There is also moderate to severe joint space narrowing in the anterior compartment. Soft tissues: Small joint effusion. No suspicious soft tissue calcifications. IMPRESSION: Tricompartmental degenerative changes which are severe at the medial femorotibial compar tment. Reviewed by: Michael Perry MD on 03/30/2020 12:38 PM PST Approved by: Michael Perry MD on 03/30/2020 12:38 PM PST Station ID: [id number]
== END 2020-03-30 23:59 | disposition home or self-care (01) ==
LOC: DI.N 15:15
PROVIDERS: ATTEND Physician Assistant
DX: M17.12 Unilateral primary osteoarthritis, left knee (principal)

== ENCOUNTER 2020-07-16 09:57 | Outpatient (CLI) | payer MEDICARE, OTHER ==
[2020-07-16 14:43] LABS: BASOPHILS # (AUTO) 0.1 10^3/uL (0.0-0.1); BASOPHILS % (AUTO) 1.2 %; EOSINOPHILS # (AUTO) 0.3 10^3/uL (0.0-0.7); EOSINOPHILS % (AUTO) 5.5 %; HCT - HEMATOCRIT 43.9 % (37.0-47.0); HGB - HEMOGLOBIN 14.1 g/dL (12.0-16.0); LYMPHOCYTES # (AUTO) 1.2 10^3/uL (1.5-3.5); LYMPHOCYTES % (AUTO) 23.6 %; MEAN CORPUSCULAR HEMOGLOBIN 30.7 pg (27.0-31.0); MEAN CORPUSCULAR HGB CONC 32.1 g/dL (32.0-36.0); MEAN CORPUSCULAR VOLUME 95.4 fL (81.0-99.0); MONOCYTES # (AUTO) 0.5 10^3/uL (0.0-1.0); MONOCYTES % (AUTO) 9.9 %; NEUTROPHILS # (AUTO) 2.9 10^3/uL (1.5-6.6); NEUTROPHILS % (AUTO) 59.6 %; PLT - PLATELET COUNT 250 10^3/uL (130-450); WHITE BLOOD COUNT 4.9 x10^3/uL (4.8-10.8)
[2020-07-16 15:05] LABS: CREATININE,URINE 166.4 mg/dL; MICROALBUM/CREATININE RATIO,UR 3.6 ug/mg (<30.0); MICROALBUMIN,URINE 0.6 mg/dL (0-300.0)
[2020-07-16 15:11] LABS: THYROID STIMULATING HORMONE 4.4 uIU/mL (0.34-5.60)
[2020-07-16 15:21] LABS: ALBUMIN 3.8 g/dL (3.2-5.5); ALBUMIN/GLOBULIN RATIO 1.3 (1.0-2.2); ALKALINE PHOSPHATASE 72 IU/L (42-121); ALT ALANINE AMINOTRANSFERASE 17 IU/L (10-60); AST ASPARTATE AMINOTRANSFERASE 17 IU/L (10-42); BILIRUBIN,TOTAL 0.6 mg/dL (0.2-1.0); BUN - BLOOD UREA NITROGEN 15 mg/dL (6-20); CALCIUM 8.9 mg/dL (8.5-10.3); CARBON DIOXIDE - CO2 26 mmol/L (21-32); CHLORIDE 106 mmol/L (101-111); CHOLESTEROL 189 mg/dL; CREATININE 0.7 mg/dL (0.4-1.0); GFR - MDRD 82 (>89); GLUCOSE 111 mg/dL (70-100); HDL CHOLESTEROL 62 mg/dL; LDL CHOLESTEROL,CALCULATED 111 mg/dL; LDL/HDL RATIO 1.8 (<4.4); POTASSIUM 3.9 mmol/L (3.5-5.0); SODIUM 140 mmol/L (135-145); TOTAL PROTEIN 6.7 g/dL (6.7-8.2); TRIGLYCERIDES 78 mg/dL; VLDL CHOLESTEROL 16 mg/dL
[2020-07-16 20:29] LABS: ESTIMATED AVERAGE GLUCOSE 128 mg/dL (70-100); HEMOGLOBIN A1c% 6.1 % (4.27-6.07)
== END 2020-07-16 09:58 | disposition home or self-care (01) ==
LOC: LAB.S 09:57
PROVIDERS: ATTEND Physician Assistant
DX: Z00.00 Encounter for general adult medical examination without abnormal findings (principal); E78.5 Hyperlipidemia, unspecified; Z79.899 Other long term (current) drug therapy; I10 Essential (primary) hypertension; E11.9 Type 2 diabetes mellitus without complications; E03.9 Hypothyroidism, unspecified; K21.9 Gastro-esophageal reflux disease without esophagitis; F41.9 Anxiety disorder, unspecified; F32.9 Major depressive disorder, single episode, unspecified
CPT/HCPCS: 36415; 80053; 80061; 82043; 82570; 83036; 83721; 84443; 85025

== ENCOUNTER 2020-09-22 21:02 | Outpatient (CLI) | payer MEDICARE, OTHER ==
--- NOTE | 2020-09-23 06:55 | Ultrasound Report ---
PROCEDURE: Duplex Ext Veins Left INDICATIONS: SWELLING OF LEFT LEG TECHNIQUE: Real-time imaging, as well as color and pulse Doppler interrogation, were performed of the lower extr emity deep veins from the inguinal ligament to the popliteal fossa. COMPARISON: None. FINDINGS: The deep veins are normally compressible, and free of intraluminal thrombus. Color and pu lse Doppler demonstrate normal phasic intraluminal flow. There is normal augmentation response to di stal compression maneuver. IMPRESSION: No evidence of deep vein thrombosis involving the left lower extremity. Reviewed by: Odilia Barboza MD, PhD on 09/23/2020 6:54 AM PDT Approved by: Odilia Barboza MD, PhD on 09/23/2020 6:54 AM PDT Station ID: [id number]
== END 2020-09-22 21:03 | disposition home or self-care (01) ==
LOC: DI 21:02
PROVIDERS: ATTEND Physician Assistant Medical
DX: R22.42 Localized swelling, mass and lump, left lower limb (principal)

== ENCOUNTER 2020-11-03 09:19 | Outpatient (CLI) | payer MEDICARE, OTHER ==
[2020-11-03 15:13] LABS: BASOPHILS # (AUTO) 0.1 10^3/uL (0.0-0.1); BASOPHILS % (AUTO) 1.4 %; EOSINOPHILS # (AUTO) 0.4 10^3/uL (0.0-0.7); HCT - HEMATOCRIT 43.6 % (37.0-47.0); HGB - HEMOGLOBIN 13.5 g/dL (12.0-16.0); LYMPHOCYTES # (AUTO) 1.3 10^3/uL (1.5-3.5); LYMPHOCYTES % (AUTO) 28.9 %; MEAN CORPUSCULAR HEMOGLOBIN 29.8 pg (27.0-31.0); MEAN CORPUSCULAR VOLUME 96.2 fL (81.0-99.0); MEAN PLATELET VOLUME 11.9 fL (7.9-10.8); MONOCYTES # (AUTO) 0.4 10^3/uL (0.0-1.0); NEUTROPHILS # (AUTO) 2.2 10^3/uL (1.5-6.6); NEUTROPHILS % (AUTO) 51.5 %; PLT - PLATELET COUNT 247 10^3/uL (130-450); RED BLOOD COUNT 4.53 10^6/uL (4.20-5.40); RED CELL DISTRIBUTION WIDTH 13.1 % (12.0-15.0); WHITE BLOOD COUNT 4.3 x10^3/uL (4.8-10.8)
[2020-11-03 15:36] LABS: ALBUMIN 3.8 g/dL (3.2-5.5); ALBUMIN/GLOBULIN RATIO 1.2 (1.0-2.2); ALKALINE PHOSPHATASE 66 IU/L (42-121); ALT ALANINE AMINOTRANSFERASE 16 IU/L (10-60); AST ASPARTATE AMINOTRANSFERASE 20 IU/L (10-42); BILIRUBIN,TOTAL 0.8 mg/dL (0.2-1.0); BUN - BLOOD UREA NITROGEN 11 mg/dL (6-20); CARBON DIOXIDE - CO2 29 mmol/L (21-32); CHLORIDE 104 mmol/L (101-111); CHOL/HDL RATIO 3.4 (<4.4); CHOLESTEROL 192 mg/dL; CREATININE 0.7 mg/dL (0.4-1.0); GFR - MDRD 81 (>89); GLUCOSE 126 mg/dL (70-100); HDL CHOLESTEROL 57 mg/dL; LDL CHOLESTEROL,CALCULATED 113 mg/dL; SODIUM 140 mmol/L (135-145); TOTAL PROTEIN 6.9 g/dL (6.7-8.2); TRIGLYCERIDES 109 mg/dL; VLDL CHOLESTEROL 22 mg/dL
[2020-11-03 15:37] LABS: THYROID STIMULATING HORMONE 11.55 uIU/mL (0.34-5.60)
[2020-11-03 15:53] LABS: CREATININE,URINE 167.5 mg/dL; MICROALBUMIN,URINE 0.5 mg/dL (0-300.0)
[2020-11-03 16:12] LABS: FREE T4 (FREE THYROXINE) 0.99 ng/dL (0.58-1.64)
[2020-11-03 20:31] LABS: ESTIMATED AVERAGE GLUCOSE 134 mg/dL (70-100); HEMOGLOBIN A1c% 6.3 % (4.27-6.07)
== END 2020-11-03 09:20 | disposition home or self-care (01) ==
LOC: LAB.S 09:19
PROVIDERS: ATTEND Physician Assistant
DX: Z00.00 Encounter for general adult medical examination without abnormal findings (principal); K21.9 Gastro-esophageal reflux disease without esophagitis; E78.5 Hyperlipidemia, unspecified; I10 Essential (primary) hypertension; E11.9 Type 2 diabetes mellitus without complications; E03.9 Hypothyroidism, unspecified
CPT/HCPCS: 36415; 80053; 80061; 82043; 82570; 83036; 83721; 84439; 84443; 85025

== ENCOUNTER 2020-11-05 14:47 | Outpatient (CLI) | payer MEDICARE, OTHER ==
[2020-11-05 20:46] LABS: THYROID STIMULATING HORMONE 8.83 uIU/mL (0.34-5.60)
[2020-11-05 21:41] LABS: FREE T4 (FREE THYROXINE) 1.03 ng/dL (0.58-1.64)
== END 2020-11-05 14:48 | disposition home or self-care (01) ==
LOC: LAB.S 14:47
PROVIDERS: ATTEND Physician Assistant
DX: E03.9 Hypothyroidism, unspecified (principal)
CPT/HCPCS: 36415; 84439; 84443

== ENCOUNTER 2020-12-02 06:12 | Day surgery (SDC) | payer MEDICARE, OTHER ==
[~2020-12-02 06:12] MED LIST: ACETAMINOPHEN 1,000 MG/100 ML 100 ML IV ONE; CEFAZOLIN SODIUM IN 0.9 % NACL 2 GM/100 ML BAG IV ONE; CELECOXIB 100 MG CAPSULE PO ONE; DEXAMETHASONE 10 MG/ML VIAL ONE
[2020-12-02] MEDS ORDERED: VANCOMYCIN 1 GM VIAL ONE (06:52)
[2020-12-02] MEDS ORDERED: KETOROLAC 30 MG/ML VIAL ONE (06:52)
[2020-12-02] MEDS ORDERED: BUPIVACAINE 0.25% PF 30 ML VIAL ONE (06:52)
[2020-12-02] MEDS ORDERED: LIDOCAINE 2%-EPI 1:100000 20 ML MDV ONE (06:53)
[2020-12-02] MEDS ORDERED: LACTATED RINGERS 1,000 ML IV ONE ×2 (06:59→11:45)
--- NOTE | 2020-12-02 07:21 | ANESTHESIA ---
Pre-Anesthesia VS, & Labs - Diagnosis L knee OA - Procedure L total knee arthroplasty Vital Signs: Temp Pulse Resp BP Pulse Ox 36.3 C L 55 L 20 138/63 H 99 12/02/20 06:15 12/02/20 06:15 12/02/20 06:15 12/02/20 06:15 12/02/20 06:15 Height: 5 ft 4 in Weight (kg): 92.9 kg Body Mass Index: 35.2 BMI Classification: Obese - NPO >8 hours Last Fluid Intake: sips with AM meds - Is Patient ?: No - Lab Results Lab results reviewed: Yes Home Medications and Allergies Home Medications: Ambulatory Orders Calcium Carb/Mag Ox/Zinc Sulf [Wym-Ess-Pnkg 334-134-5 mg Tab] 1 each PO DAILY 11/19/20 Calcium Carbonate/Vitamin D3 [Calcium 600-Vit D3 200 Tablet] 1 each PO DAILY 11/19/20 Cetirizine [ZyrTEC] 10 mg PO DAILY 11/19/20 Citalopram Hydrobromide [Celexa] 20 mg PO DAILY 11/19/20 Estrogens, Conjugated Cream [Premarin Cream] 1 gm VG QPM 11/19/20 Gabapentin [Neurontin] 600 mg PO QPM 11/19/20 Lactobacillus Combination No.4 [Probiotic] 1 each PO DAILY 11/19/20 Levothyroxine Sodium [Synthroid] 100 mcg PO DAILY 11/19/20 Lidocaine Patch 5% [Lidoderm Patch] 1 each TOP DAILY 11/19/20 Loperamide [Imodium] 4 mg PO DAILY 11/19/20 Multivitamin 1 each PO DAILY 11/19/20 Pantoprazole Sodium 20 mg PO BID 11/19/20 carvediloL [Coreg] 3.125 mg PO BID 11/19/20 Calcium Carb/Mag Ox/Zinc Sulf [Myx-Hwb-Efbe 334-134-5 mg Tab] 1 each PO DAILY 11/19/20 Calcium Carbonate/Vitamin D3 [Calcium 600-Vit D3 200 Tablet] 1 each PO DAILY 11/19/20 Cetirizine [ZyrTEC] 10 mg PO DAILY 11/19/20 Citalopram Hydrobromide [Celexa] 20 mg PO DAILY 11/19/20 Estrogens, Conjugated Cream [Premarin Cream] 1 gm VG QPM 11/19/20 Gabapentin [Neurontin] 600 mg PO QPM 11/19/20 Lactobacillus Combination No.4 [Probiotic] 1 each PO DAILY 11/19/20 Levothyroxine Sodium [Synthroid] 100 mcg PO DAILY 11/19/20 Lidocaine Patch 5% [Lidoderm Patch] 1 each TOP DAILY 11/19/20 Loperamide [Imodium] 4 mg PO DAILY 11/19/20 Multivitamin 1 each PO DAILY 11/19/20 Pantoprazole Sodium 20 mg PO BID 11/19/20 carvediloL [Coreg] 3.125 mg PO BID 11/19/20 Allergies/Adverse Reactions: Allergies Allergy/AdvReac Type Severity Reaction Status Date / Time gluten Allergy Hives Verified 11/10/20 09:48 Penicillins Allergy Hives Verified 03/10/19 13:12 soy Allergy Hives Verified 11/10/20 09:48 Sulfa (Sulfonamide Allergy Rash Verified 03/10/19 13:12 Antibiotics) Anes History & Medical History - Anesthetic History Anesthesia Complications: reports: No previous complications Family history of Anesthesia Complications: Denies Family history of Malignant Hyperthermia: Denies - Medical History Cardiovascular: reports: Hypertension Pulmonary: reports: None Gastrointestinal: reports: GERD Urinary: reports: Incontinence Neuro: reports: None Musculoskeletal: reports: Osteoarthritis Endocrine/Autoimmune: reports: HyPOthyroidism Skin: reports: None Smoking Status: Never smoker - Surgical History General: reports: Cholecystectomy, Appendectomy Eyes Ears Nose Throat (EENT): reports: Cataracts, Other Urologic: reports: Bladder surgery Gynecologic: reports: Hysterectomy Orthopedic: reports: Knee replacement Exam General: Alert Dental: WNL Mouth Openin Fingerbreadth Neck Mobility: Normal Mallampati classification: II Thyromental Distance: 4-6 cm Respiratory: Lungs clear, Normal breath sounds, No respiratory distress Cardiovascular: Regular rate Neurological: Normal speech Mental/Cognitive Status: Alert/Oriented X3, Normal for patient Cognitive Status: Within normal limits Plan Anesthesia Type: Spinal, Adductor Block Consent for Procedure(s) Verified and Reviewed: Yes Code Status: Attempt Resuscitation ASA classification: 2-Mild systemic disease Is this case an emergency?: No
[2020-12-02] MEDS ORDERED: TRANEXAMIC ACID 1,000 MG/10 ML VIAL ONE ×2 (07:22→10:46)
[2020-12-02] MEDS ORDERED: SODIUM CHLORIDE FLUSH 0.9% 10 ML SYRINGE IVP PRN (07:22)
[2020-12-02] MEDS ORDERED: DOCUSATE SODIUM 100 MG CAPSULE PO PRN (07:22)
[2020-12-02] MEDS ORDERED: HYDROmorphone 1 MG/ML CARPUJECT IVP PRN (07:22)
[2020-12-02] MEDS ORDERED: MIDAZOLAM 2 MG/2 ML VIAL ONE (07:22)
[2020-12-02] MEDS ORDERED: NALOXONE 0.4 MG/ML VIAL IVP PRN (07:23)
[2020-12-02] MEDS ORDERED: ONDANSETRON 4 MG/2 ML VIAL ONE (07:23)
[2020-12-02] MEDS ORDERED: ATROPINE ABBOJECT 1 MG/10 ML SYRINGE IVP PRN (07:23)
[2020-12-02] MEDS ORDERED: fentaNYL 100 MCG/2 ML VIAL IVP PRN (07:23)
[2020-12-02] MEDS ORDERED: ePHEDrine 50 MG/ML VIAL IVP PRN (07:23)
[2020-12-02] MEDS ORDERED: ONDANSETRON 4 MG/2 ML VIAL IVP PRN (07:23)
[2020-12-02] MEDS ORDERED: HYDROmorphone 0.5 MG/0.5 ML SYRINGE IVP PRN (07:23)
[2020-12-02] MEDS ORDERED: METOCLOPRAMIDE 10 MG/2 ML VIAL IVP PRN (07:23)
[2020-12-02] MEDS ORDERED: MORPHINE 2 MG/ML CARPUJECT IVP PRN (07:23)
[2020-12-02] MEDS ORDERED: BUPIVACAINE 0.5% PF 10 ML VIAL ONE (07:23)
[2020-12-02] MEDS ORDERED: PROPOFOL 500 MG/50 ML 500 MG/50 ML VIAL ONE ×3 (07:25→09:56)
[2020-12-02] MEDS ORDERED: LACTATED RINGERS 1,000 ML IV SCH (08:00)
[2020-12-02] MEDS ORDERED: ePHEDrine 50 MG/ML VIAL IVP ONE (08:04)
--- NOTE | 2020-12-02 08:08 | ANESTHESIA ---
Pre-Anesthesia VS, & Labs Vital Signs: Temp Pulse Resp BP Pulse Ox 36.3 C L 55 L 20 138/63 H 99 12/02/20 06:15 12/02/20 06:15 12/02/20 06:15 12/02/20 06:15 12/02/20 06:15 Height: 5 ft 4 in Weight (kg): 92.9 kg Body Mass Index: 35.2 BMI Classification: Obese Home Medications and Allergies Home Medications: Ambulatory Orders Calcium Carb/Mag Ox/Zinc Sulf [Rfd-Zag-Wwmz 334-134-5 mg Tab] 1 each PO DAILY 11/19/20 Calcium Carbonate/Vitamin D3 [Calcium 600-Vit D3 200 Tablet] 1 each PO DAILY 11/19/20 Cetirizine [ZyrTEC] 10 mg PO DAILY 11/19/20 Citalopram Hydrobromide [Celexa] 20 mg PO DAILY 11/19/20 Estrogens, Conjugated Cream [Premarin Cream] 1 gm VG QPM 11/19/20 Gabapentin [Neurontin] 600 mg PO QPM 11/19/20 Lactobacillus Combination No.4 [Probiotic] 1 each PO DAILY 11/19/20 Levothyroxine Sodium [Synthroid] 100 mcg PO DAILY 11/19/20 Lidocaine Patch 5% [Lidoderm Patch] 1 each TOP DAILY 11/19/20 Loperamide [Imodium] 4 mg PO DAILY 11/19/20 Multivitamin 1 each PO DAILY 11/19/20 Pantoprazole Sodium 20 mg PO BID 11/19/20 carvediloL [Coreg] 3.125 mg PO BID 11/19/20 Calcium Carb/Mag Ox/Zinc Sulf [Lik-Ppt-Hajh 334-134-5 mg Tab] 1 each PO DAILY 11/19/20 Calcium Carbonate/Vitamin D3 [Calcium 600-Vit D3 200 Tablet] 1 each PO DAILY 11/19/20 Cetirizine [ZyrTEC] 10 mg PO DAILY 11/19/20 Citalopram Hydrobromide [Celexa] 20 mg PO DAILY 11/19/20 Estrogens, Conjugated Cream [Premarin Cream] 1 gm VG QPM 11/19/20 Gabapentin [Neurontin] 600 mg PO QPM 11/19/20 Lactobacillus Combination No.4 [Probiotic] 1 each PO DAILY 11/19/20 Levothyroxine Sodium [Synthroid] 100 mcg PO DAILY 11/19/20 Lidocaine Patch 5% [Lidoderm Patch] 1 each TOP DAILY 11/19/20 Loperamide [Imodium] 4 mg PO DAILY 11/19/20 Multivitamin 1 each PO DAILY 11/19/20 Pantoprazole Sodium 20 mg PO BID 11/19/20 carvediloL [Coreg] 3.125 mg PO BID 11/19/20 Allergies/Adverse Reactions: Allergies Allergy/AdvReac Type Severity Reaction Status Date / Time gluten Allergy Hives Verified 11/10/20 09:48 Penicillins Allergy Hives Verified 03/10/19 13:12 soy Allergy Hives Verified 11/10/20 09:48 Sulfa (Sulfonamide Allergy Rash Verified 03/10/19 13:12 Antibiotics) Anes History & Medical History - Medical History Cardiovascular: reports: Hypertension Pulmonary: reports: None Gastrointestinal: reports: GERD Urinary: reports: Incontinence Neuro: reports: None Musculoskeletal: reports: Osteoarthritis Endocrine/Autoimmune: reports: HyPOthyroidism Skin: reports: None Smoking Status: Never smoker - Surgical History General: reports: Cholecystectomy, Appendectomy Eyes Ears Nose Throat (EENT): reports: Cataracts, Other Urologic: reports: Bladder surgery Gynecologic: reports: Hysterectomy Orthopedic: reports: Knee replacement
[2020-12-02] MEDS ORDERED: KETOROLAC 30 MG/ML VIAL IVP ONE (08:39)
[2020-12-02] MEDS ORDERED: VANCOMYCIN 1 GM VIAL MC ONE (08:39)
[2020-12-02] MEDS ORDERED: HYDROGEN PEROXIDE 3% 473 ML BOTTLE TOP ONE (08:40)
[2020-12-02] MEDS ORDERED: BUPIVACAINE 0.25% PF 30 ML VIAL SUBQ ONE (08:41)
--- NOTE | 2020-12-02 11:04 | OPERATIVE REPORT ---
Operative Report - General Procedure Date: 12/02/20 Planned Procedure: Left total knee replacement Pre-Op Diagnosis: Varus osteoarthritis left knee Procedure Performed: Left total knee replacement: [employer] antibiotic cemented bicruciate total knee: #4 left Oxinium bicruciate stabilized femoral component, #4 tibial baseplate, 15 mm constrained articular insert, 26 mm biconvex patellar component Post Op Diagnosis: Same as preoperative diagnosis - Procedure Note Primary Surgeon: Joel Olvera MD Secondary Surgeon: Dario RUBIO Anesthesia Provider: Lorin Reaves CRNA Anesthesia Technique: General ET tube, Regional block Estimated Blood Loss (mL): 250 Indications: This is a 75-year-old woman with progressive pain with activities of daily living and activities that she enjoys with regard to left knee. She has generalized knee pain, worse on the medial side of her left knee and has not responded to nonoperative treatment despite time and attempts to decrease pain. Her x-ray showed complete loss of medial compartment joint space, [id number] with sclerosis and osteophytes consistent with advanced varus osteoarthritis left knee. She had abnormalities on exam of left knee as well. Her comorbidities are increased body mass index and diabetes. Her diabetes is fairly well controlled with a hemoglobin A1c less than 7. Findings: There were eburnated bone surface to the medial compartment with osteophytes about the tibiofemoral joint, greater on the medial side of the left knee. There was full-thickness loss to the patellofemoral joint with osteophytes. The lateral compartment had partial thickness articular cartilage loss. The cruciate ligaments are intact as well as the menisci. Complications: None - Other Other Information/Narrative: The patient was brought to the operating room. She was administered general anesthetic. She was placed in the supine position. The left lower leg was prepped and draped in a sterile manner in the usual fashion. An Trejo leg positioner had been applied to the operating room table. The pneumatic tourniquet did not fit to her left thigh even the conical shaped one.A timeout procedure was performed by the entire operating room team and all were in agreement. She did receive 2 g of Ancef and 1 g of tranexamic acid. The incision was made over the anterior aspect of the left knee without tourniquet. The knee was placed in flexion. A medial parapatellar arthrotomy was made with incision of quadriceps tendon proximally for about 3 cm. Distally the incision was carried down adjacent to the medial edge of the patellar tendon. The medial soft tissues were elevated to the proximal medial tibia including the deep portion of the medial collateral ligament. The anterior horns of both medial and lateral menisci were incised. A portion of the patellar fat pad was excised. The knee was placed in flexion and the patella dislocated laterally. Retractors were placed medially and laterally to protect the collateral ligaments. The distal femoral alignment block was inserted, 5 degree valgus and primary cut. The half block was secured with 3/2 pins and the Cyntellect precision 8 sawblade was used to make the distal femoral cut. The cut was checked for flatness. Next the extra medullary tibial alignment guide was applied and aligned to the mechanical axis of the tibia in both coronal and sagittal planes. Approximately 3 mm were removed from the most affected medial side and approximately 9 mm from the lateral side. The tibial guide was stabilized with 3/2 pins. A posterior cruciate retractor was inserted to sublux the tibia anteriorly and protect the neurovascular bundles. The precision blade was then used to make the tibial osteotomy. The tibia was then removed en bloc and measured as a #4 tibial size. Spacer block was inserted, 10 mm, found to fit in both extension and flexion at 90 degrees. The half pins were removed from tibia and femur. The femur was sized, aligned to the epicondylar axis and [place] line with 3 degrees of external rotation. The size of the femur was a #4. The #4 5 and 1 cutting block was then applied and stabilized. The 5 cuts through this guide was performed. The #4 femoral trial fit excellent, not removed with reamers posterior and anterior, then box osteotome. A tibial baseplate and tibial bearing was inserted with 10 mm bearing. There is seem to be good stability in extension and flexion with good patellar tracking. The patella O was everted. The thickness of the patella was measured with calipers, 26 mm biconvex guide and reamer was then used.The patellar button fit well. The components were removed. A Esmarch bandage was wrapped around the leg and secured to the upper femur to act as a tourniquet. The bone surfaces were cleaned with hydrogen peroxide and pulsatile lavage. Antibiotic cement was utilized since the patient is diabetic. The components were sequentially inserted, tibial component, femoral component and lastly the patellar component. Excess cement was utilized. The knee was placed in extension with a trial tibial bearing while the patellar button was compressed with a bone patellar clamp. The trial reduction was performed seem to show stability in extension and flexion. The 10 mm tibial bearing was inserted and motion and stability were rechecked. When this was performed, there was anterior posterior instability and flexion instability. This was not noted earlier. Therefore, the tibial bearing was removed easily with the removal tool. Trial reduction wa s performed with various thicknesses of tibial bearing and a constrained 15 mm bearing was chosen. This was inserted and found to have good flexion stability, good anterior and posterior stability and full extension. Extension stability was very good as well. The knee had good motion, good alignment and good patellar tracking. The tourniquet was approximately 20 minutes. Hemostasis was achieved with electrocautery. The arthrotomy was closed with #1 Mersilene proximal and distal to the patella, then #1 strata fix in a running suture. The subcutaneous tissue was closed with 2 oh strata fix. The skin was closed with 3-0 Monocryl subcuticular suture, Dermabond, silver impregnated dressing applied. The patient tolerated procedure well. A physician podiatric assistant was utilized and was found to be necessary to protect vital 3 structures, provide exposure, facilitate cement removal, facilitate closure of wound and dressing.
[2020-12-02] MEDS ORDERED: ROPIVACAINE 0.5% PF 20 ML VIAL ONE ×2 (11:09→11:37)
[2020-12-02] MEDS ORDERED: PROPOFOL 200 MG/20 ML VIAL IVP ONE (11:13)
--- NOTE | 2020-12-02 11:41 | PHARMACY PROGRESS NOTE ---
- Best Possible Medication History Admit Date and Time: Processed by: Nursing Medication History completed: Yes Patient Interview: Completed (MED REC COMPLETED BY NURSING) As the person ultimately responsible for medication therapy, providers are able to order a medication from an existing home medication list in [facility] via the "Reconcile Routine" prior to Confirmation of that medication by technical support professional. Such practice is discouraged except when the physician, in their clinical judgment, deems that a medical need exists for a medication without regard to previous use.
[2020-12-02] MEDS: CELECOXIB 100 MG CAPSULE PO SCH ×2 (12:42→21:22)
[2020-12-02] MEDS: ethyl alcohoL 62% SWAB AMPULE NAS SCH ×2 (13:13→21:22)
[2020-12-02] MEDS: SODIUM CHLORIDE FLUSH 0.9% 10 ML SYRINGE IVP SCH ×2 (13:13→16:17)
[2020-12-02] MEDS: ACETAMINOPHEN 500 MG TABLET PO SCH ×2 (13:28→18:01)
--- NOTE | 2020-12-02 13:30 | ANESTHESIA POST OP EVALUATION ---
Anesthesia Post Eval - Post Anesthesia Eval Vitals: Last Vital Signs Temp 36.8 C 12/02/20 12:10 Pulse 63 12/02/20 12:10 Resp 13 12/02/20 12:10 BP 102/48 L 12/02/20 12:10 Pulse Ox 94 12/02/20 12:10 CV Function Including HR & BP: Stable Pain Control: Satisfactory Nausea & Vomiting: Negative Mental Status: Baseline Respiratory Status: Airway Patent Hydration Status: Satisfactory Anesthesia Complications: None
[2020-12-02] MEDS: oxyCODONE 5 MG TABLET PO PRN ×2 (15:06→22:40)
--- NOTE | 2020-12-02 16:00 | XRAY Report ---
PROCEDURE: Knee 2 View LT INDICATIONS: Postop left TKA TECHNIQUE: 2 views of the knee(s) were acquired. COMPARISON: X-ray knee 03/30/2020 FINDINGS: Bones: No fractures or dislocations. No suspicious bony lesions. Knee arthroplasty is present. Brady dware is intact without evidence of hardware fracture or periprosthetic loosening. Left Soft tissues: No joint effusion. No suspicious soft tissue calcifications. IMPRESSION: Postsurgical changes reflecting knee arthroplasty as above. Reviewed by: Shyanne Valente MD on 12/02/2020 3:59 PM PDT Approved by: Shyanne Valente MD on 12/02/2020 3:59 PM PDT Station ID: [id number]
[2020-12-02] MEDS: ceFAZolin 2 GM in SODIUM CHLORIDE 0.9% 100ML 100 ML IV SCH (16:17)
[2020-12-02] MEDS: INSULIN ASPART 300 UNIT/3 ML PEN SUBQ SCH ×2 (16:57→21:22)
[2020-12-02] MEDS: PANTOPRAZOLE 40 MG TABLET PO SCH (18:00)
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
[2020-12-02] MEDS ORDERED: GABAPENTIN 300 MG CAPSULE PO SCH (21:00)
[2020-12-02] MEDS: carvediloL 3.125 MG TABLET PO SCH (21:22)
[2020-12-03] MEDS: ACETAMINOPHEN 500 MG TABLET PO SCH ×3 (00:26→12:24)
[2020-12-03] MEDS: SODIUM CHLORIDE FLUSH 0.9% 10 ML SYRINGE IVP SCH ×2 (00:29→08:49)
[2020-12-03] MEDS: ceFAZolin 2 GM in SODIUM CHLORIDE 0.9% 100ML 100 ML IV SCH (00:29)
[2020-12-03] MEDS: oxyCODONE 5 MG TABLET PO PRN ×2 (02:58→08:50)
[2020-12-03] MEDS ORDERED: LEVOTHYROXINE 100 MCG TABLET PO SCH (07:00)
[2020-12-03] MEDS ORDERED: PANTOPRAZOLE 40 MG TABLET PO SCH (07:00)
--- NOTE | 2020-12-03 07:48 | PROVIDER PROGRESS NOTE ---
Subjective - General Procedure Date: 12/02/20 Post Op Days: 1 Procedure Performed: Left TKA - Review of Systems Wound/Incisions: positive: Dressing dry and intact General: negative: Fever, Chills Cardiovascular: negative: Chest pain, Lightheadedness Gastrointestinal: negative: Nausea, Vomiting Musculoskeletal: positive: Joint pain, Joint swelling Skin: positive: No symptoms - Other Other Information/Narrative: Patient is a 75-year-old female for history significant for BETSEY, hypertension, hyperlipidemia, obesity, diabetes mellitus, IBS, GERD, who is postop day 1 left TKA performed [place] Dr Joel Gill [facility] [place]. Patient has allergies to soy clindamycin penicillin and Bactrim. Patient denies signs and symptoms of infection pain is well controlled. Hospitalist is comanaging patient for medical issues. Patient is receiving PT OT with plan discharge home today less than 23 hours after surgery.Patient reports a little soft blood pressures reported by patient approximately 100/50 at the lowest denies any symptoms. Objective - Patient Data Vital Signs: Vital Signs x48h Temp Pulse Resp BP Pulse Ox 12/03/20 07:28 36.5 C 56 L 16 113/55 L 99 12/03/20 06:00 36.5 C 57 L 18 101/50 L 96 12/03/20 02:56 114/54 L 12/02/20 23:51 36.8 C 58 L 20 105/46 L 94 Weight: Weight 12/01/20 12/02/20 12/03/20 23:59 23:59 23:59 Weight (kg) 92.9 kg Intake & Output: Intake and Output Totals x24h 12/01/20 12/02/20 12/03/20 23:59 23:59 23:59 Intake Total 868 600 Output Total 1215 300 Balance -347 300 - Lab Results Other Lab Results: Lab Results x24hrs 12/03/20 12/02/20 12/02/20 Range/Units 07:22 16:56 12:52 POC Whole Bld Glucose 143 H 171 H 151 H (70 - 100) mg/dL 12/02/20 Range/Units 12:06 POC Whole Bld Glucose 163 H (70 - 100) mg/dL - Imaging Results Radiology Imaging: positive: EMP read indepedently (I have independently visualized the postop films which show status post total knee arthroplasty with good anatomical alignment no apparent hardware loosening) - Current Medications Current Medications: Current Medications Generic Name Dose Route Start Last Admin Trade Name Freq PRN Reason Stop Dose Admin Acetaminophen 1,000 mg 12/02/20 12:00 12/03/20 06:20 Acetaminophen 500 Mg Tablet PO 1,000 mg Q6HR LELE Administration Alcohol 1 amp 12/02/20 09:00 12/02/20 21:22 Ethyl Alcohol 62% Swab Ampule CHELITA 1 amp BID LELE Administration Carvedilol 3.125 mg 12/02/20 21:00 12/02/20 21:22 Carvedilol 3.125 Mg Tablet PO 3.125 mg BID LELE Administration Celecoxib 200 mg 12/02/20 09:00 12/02/20 21:22 Celecoxib 100 Mg Capsule PO 200 mg BID LELE Administration Gabapentin 600 mg 12/02/20 21:00 12/02/20 21:22 Gabapentin 300 Mg Capsule PO 600 mg QPM LELE Administration Insulin Aspart 1 - 5 unit 12/02/20 17:00 12/02/20 21:22 Insulin Aspart 300 Unit/3 Ml Pen SUBQ 2 unit 0800,1200,1700,2100 LELE Administration Protocol Levothyroxine Sodium 100 mcg 12/03/20 07:00 12/03/20 06:21 Levothyroxine 100 Mcg Tablet PO 100 mcg QDAC LELE Administration Oxycodone HCl 5 mg 12/02/20 07:22 12/03/20 02:58 Oxycodone 5 Mg Tablet PO 5 mg Q6HR PRN Administration PAIN Pantoprazole Sodium 40 mg 12/02/20 18:00 12/02/20 18:00 Pantoprazole 40 Mg Tablet PO 40 mg BIDWM LELE Administration Sodium Chloride 10 ml 12/02/20 09:00 12/03/20 00:29 Sodium Chloride Flush 0.9% 10 Ml Syringe IVP 10 ml 0100,0900,1700 LELE Administration - Physical Exam Wound/Incisions: positive: Dressing dry and intact General Appearance: positive: No acute distress Respiratory: positive: No respiratory distress Skin: positive: Color nml, No rash, Warm, Dry Extremities: positive: Joint swelling ABX Reporting Has patient been on IV antibiotics over the past 48 hours?: Yes Impression/Plan - Problem List Problem List: Patient is a 75-year-old female is postop day [address] left [address] performed [place] Dr Joel Gill [facility] [place]. Patient is weightbearing as tolerated in front wheeled walker, patient reports she has a front wheel walker at home. Patient is to receive PT OT today another session or 2 if she is deemed safe for discharge she is to go home between lunch and dinner ideally. Patient is cleared for discharge from an orthopedic surgical standpoint, I will put the discharge order and pending PT OT verbal sign off. Patient is being comanaged by the hospitalist. Discharge plan will list further instructions for the patient please ensure they received this before they go home.
[2020-12-03] MEDS: INSULIN ASPART 300 UNIT/3 ML PEN SUBQ SCH ×2 (08:00→11:08)
--- NOTE | 2020-12-03 08:20 | Discharge Plan ---
Discharge Plan Problem Reviewed?: Yes Disposition: Home, Self Care Condition: Good Activity Restrictions: Activity as Tolerated Shower Restrictions: Yes ( avoid getting his bandage wet) Driving Restrictions: Yes (Do not operate a motor vehicle until cleared by surgeon) Assistance Devices: Walker Weight Bearing: Partial Weight Plan of Treatment: You had a left total knee arthroplasty or left total knee replacement done yesterday by Dr Joel Olvera at [facility]. You can put weight on the left leg and foot using a front wheeled walker as much as feels comfortable for you. You should elevate put ice and stick to your medication schedule for pain control. Do not put pillows directly under the knee.You are to work on gentle range of motion. Additional Instructions or Follow Up instructions: As discussed you have a multimodal pain control approach, taking 1 200 mg tablet of Celebrex once a day for 14 days. Take 650 mg of Tylenol scheduled regardless of pain every 5 hours up to 4 times In 24 hours. Take tramadol 50 mg tablet every 6 hours while waking not to exceed 4 tablets in a 24-hour period.Take 1- 5 mg of oxycodone as needed for breakthrough pain greater than 8 out of 10 every 4-6 hours. Recommend taking 1 approximately an hour before bedtime to promote sleep. Take 81 mg of aspirin twice a day for blood clot prevention. Keep your bandage on until your first postop appointment. You have a sudden increase in pain no change in the color redness and swelling of exposed skin or suspect any drainage through your outer bandages please inspect further and call our office during business hours at [phone]. If it is outside business hours seek immediate care as these are signs of potential infection. Weight-bear as tolerated in front wheeled walker you can do gentle heel slides to begin some very gentle range of motion in your operative knee. More instructions on your postop visit. No Smoking: If you smoke, Please STOP! Call for help. Follow-up with: LOVELY PARADA PA-C [Primary Care Provider] -
[2020-12-03] MEDS: CELECOXIB 100 MG CAPSULE PO SCH (08:49)
[2020-12-03] MEDS: PANTOPRAZOLE 40 MG TABLET PO SCH (08:49)
[2020-12-03] MEDS: ethyl alcohoL 62% SWAB AMPULE NAS SCH (08:49)
[2020-12-03] MEDS: carvediloL 3.125 MG TABLET PO SCH (08:52)
[2020-12-03] MEDS ORDERED: LIDOCAINE PATCH 5% TOP SCH (09:00)
[2020-12-03] MEDS ORDERED: [UNRECOGNIZED DRUG - OTHER] PO SCH (09:00)
[2020-12-03] MEDS ORDERED: NON FORMULARY MED (Lactobacillus Combination No.4 [Probiotic] 1 EACH Capsule) PO SCH (09:00)
[2020-12-03] MEDS ORDERED: polyethylene glycoL 3350 17 GM PACKET PO SCH (09:00)
[2020-12-03] MEDS ORDERED: LACTOBACILLUS RHAMNOSUS GG CAPSULE PO SCH (09:00)
[2020-12-03] MEDS ORDERED: CHOLECALCIFEROL 400 UNIT TABLET PO SCH (09:00)
[2020-12-03] MEDS ORDERED: CETIRIZINE 10 MG TABLET PO SCH (09:00)
[2020-12-03] MEDS ORDERED: CALCIUM CARB (OYSTER SHELL) 500 MG TABLET PO SCH ×2 (09:00→09:08)
[2020-12-03] MEDS ORDERED: VITAMIN D3 PO SCH (09:00)
[2020-12-03] MEDS ORDERED: CALCIUM CARBONATE PO SCH (09:00)
[2020-12-03] MEDS ORDERED: CITALOPRAM HYDROBROMIDE 20 MG TABLET PO SCH ×2 (09:00→09:09)
[2020-12-03 12:25] VITALS: BP 132/60
[2020-12-03] MEDS ORDERED: ESTROGENS, CONJUGATED CREAM 30 GM TUBE VG SCH (21:00)
== END 2020-12-03 14:00 | disposition home or self-care (01) ==
LOC: SDS 06:12 → MS2 11:38 → SDS 12-03 14:00
PROVIDERS: ATTEND Orthopaedic Surgery
DX: M17.12 Unilateral primary osteoarthritis, left knee (principal); R32 Unspecified urinary incontinence; K21.9 Gastro-esophageal reflux disease without esophagitis; K44.9 Diaphragmatic hernia without obstruction or gangrene; Z79.82 Long term (current) use of aspirin; I10 Essential (primary) hypertension; E03.9 Hypothyroidism, unspecified; F41.9 Anxiety disorder, unspecified; E66.9 Obesity, unspecified; Z68.35 Body mass index [BMI] 35.0-35.9, adult; K21.00 Gastro-esophageal reflux disease with esophagitis, without bleeding; J30.9 Allergic rhinitis, unspecified; E11.9 Type 2 diabetes mellitus without complications; E78.5 Hyperlipidemia, unspecified
CPT/HCPCS: 27447; 73560; 97116; 97162; 97165; 97530; A9270; J0131; J0690; J2795; J3370; J7120

== ENCOUNTER 2021-01-05 13:26 | Outpatient (CLI) | payer MEDICARE, OTHER ==
--- NOTE | 2021-01-07 02:21 | XRAY Report ---
PROCEDURE: Knee 4 View LT INDICATIONS: LEFT TKA TECHNIQUE: 4 views of the left knee(s) were acquired. Images became available for interpretation on 01/06/2021. COMPARISON: X-ray knee 12/02/2020 FINDINGS: Bones: No fractures or dislocations. No suspicious bony lesions. Bilateral knee arthroplasties are present. Hardware is intact without evidence of hardware fracture or periprosthetic lucency to sugge st loosening. Soft tissues: Minimal left joint effusion. No suspicious soft tissue calcifications. IMPRESSION: Stable appearance of knee arthroplasties. Reviewed by: Shyanne Valente MD on 01/07/2021 12:46 AM PDT Approved by: Shyanne Valente MD on 01/07/2021 12:46 AM PDT Station ID: [id number]
== END 2021-01-05 13:27 | disposition home or self-care (01) ==
LOC: DI.N 13:26
PROVIDERS: ATTEND Orthopaedic Surgery
DX: M25.462 Effusion, left knee (principal); Z96.653 Presence of artificial knee joint, bilateral

== ENCOUNTER 2021-02-03 13:16 | Emergency (ER) | payer MEDICARE, OTHER ==
[2021-02-03 14:13] VITALS: BP 153/56
[2021-02-03] MEDS ORDERED: ONDANSETRON ODT 4 MG TABLET TL STA (14:37)
[2021-02-03] MEDS ORDERED: KETOROLAC 60 MG/2 ML VIAL IM STA (14:37)
--- NOTE | 2021-02-03 14:37 | ED Physician Documentation ---
PD HPI LOWER EXT INJURY - Stated complaint Stated Complaint: LEFT KNEE PX POST SURG - Chief complaint Chief Complaint: Ext Problem - History obtained from History obtained from: Patient - Additional information Additional information: Patient comes emergency department chief complaint of of left lower extremity pain and swelling after an injury this morning. She states that she had a knee replacement back in late November and has actually been doing quite well since then. She normally does not walk with a cane unless she is going out somewhere. She has been doing calf raises to help strengthen her leg since the surgery. She states that she was doing her exercises this morning, she felt a sudden pain behind her knee, Which radiated up into her posterior thigh and is now radiating up her lateral thigh. She states she does not feel any shifting or instability in the knee itself. She has noticed some swelling around the knee which initially was quite a bit greater than it is now. She also noticed a contusion that she had not seen Before medially and inferiorly into the knee and the inferior aspect of the surgical scar. She states that prior to doing her exercises she was feeling just fine. She has not had any progressive swelling or pain in the leg Leading up to today. She states she just felt really scared after the pain and was not able to walk very well because the pain would shoot up and down her leg, so she went to the walk-in clinic, where she was told that she might have a blood clot and should come to the emergency department. Patient denies any chest pain or shortness of breath. No other complaints at this time. Review of Systems Ten Systems: 10 systems reviewed and negative Constitutional: reports: Reviewed and negative Eyes: reports: Reviewed and negative Ears: reports: Reviewed and negative Nose: reports: Reviewed and negative Throat: reports: Reviewed and negative Cardiac: reports: Reviewed and negative Respiratory: reports: Reviewed and negative GI: reports: Reviewed and negative : reports: Reviewed and negative Skin: reports: Reviewed and negative Musculoskeletal: reports: Extremity pain, Pain with weight bearing Neurologic: reports: Reviewed and negative Psychiatric: reports: Reviewed and negative Endocrine: reports: Reviewed and negative Immunocompromised: reports: Reviewed and negative PD PAST MEDICAL HISTORY - Past Medical History Cardiovascular: Hypertension Respiratory: None Neuro: None Endocrine/Autoimmune: HyPOthyroidism GI: GERD, Ulcers, Diverticulitis, Other (diverticulosis, celieac disease on EGD) C[employer]IN[employer]S TE[employer]ER: Endometriosis (treated w hyster 1983), Other () : Incontinence (seen by [facility] 2005, and Danielito Clayton 2010) HEENT: Chronic vision loss, Chronic sinusitis Psych: Anxiety Musculoskeletal: Osteoarthritis, Other Derm: Other (dermatitis herpetiformis) - Past Surgical History Past Surgical History: Yes General: Cholecystectomy, Appendectomy, Colonoscopy, EGD Ortho: Knee replacement, Carpal Tunnel surgery /CULINARY [employer]S TE[employer]ER: Hysterectomy, Other HEENT: Cataracts, Other - Present Medications Home Medications: Ambulatory Orders Medication Instructions Recorded Confirmed Calcium Carb/Mag Ox/Zinc Sulf 1 each PO DAILY 11/19/20 12/02/20 [Cpn-Mfe-Czet 334-134-5 mg Tab] Calcium Carbonate/Vitamin D3 1 each PO DAILY 11/19/20 12/02/20 [Calcium 600-Vit D3 200 Tablet] Cetirizine [ZyrTEC] 10 mg PO DAILY 11/19/20 11/19/20 Citalopram Hydrobromide [Celexa] 20 mg PO DAILY 11/19/20 12/02/20 Estrogens, Conjugated Cream 1 gm VG QPM 11/19/20 12/02/20 [Premarin Cream] Gabapentin [Neurontin] 600 mg PO QPM 11/19/20 12/02/20 Lactobacillus Combination No.4 1 each PO DAILY 11/19/20 12/02/20 [Probiotic] Levothyroxine Sodium [Synthroid] 100 mcg PO DAILY 11/19/20 12/02/20 Lidocaine Patch 5% [Lidoderm Patch] 1 each TOP DAILY 11/19/20 11/19/20 Loperamide [Imodium] 4 mg PO DAILY 11/19/20 11/19/20 Multivitamin 1 each PO DAILY 11/19/20 12/02/20 Pantoprazole Sodium 20 mg PO BID 11/19/20 12/02/20 carvediloL [Coreg] 3.125 mg PO BID 11/19/20 12/02/20 Cyclobenzaprine [Flexeril] 10 mg PO TID PRN #20 tablet 02/03/21 Ibuprofen [Motrin] 800 mg PO Q8H PRN #30 tablet 02/03/21 - Allergies Allergies/Adverse Reactions: Allergies Allergy/AdvReac Type Severity Reaction Status Date / Time gluten Allergy Hives Verified 02/03/21 13:30 Penicillins Allergy Hives Verified 02/03/21 13:30 soy Allergy Hives Verified 02/03/21 13:30 Sulfa (Sulfonamide Allergy Rash Verified 02/03/21 13:30 Antibiotics) - Social History Does the pt smoke?: No Smoking Status: Never smoker Does the pt drink ETOH?: Yes Does the pt have substance abuse?: No - Immunizations Immunizations are current?: Yes - POLST Patient has POLST: No POLST Status: Full Code PD ED PE NORMAL - Vitals Vital signs reviewed: Yes - General General: Alert and oriented X 3, No acute distress, Well developed/nourished, Other (Patient is mildly anxious but otherwise no distress) - HEENT HEENT: Atraumatic, PERRL, EOMI, Moist mucous membranes - Neck Neck: Supple, no meningeal sign - Cardiac Cardiac: RRR, No murmur, Strong equal pulses - Respiratory Respiratory: No respiratory distress, Clear bilaterally - Abdomen Abdomen: Soft, Non tender, Non distended - Derm Derm: Warm and dry, No rash, Other (No erythema over left knee. Approximately 3.5 cm diameter round, acute appearing contusion Inferomedial to the patella and just inferior to the surgical scar. Surgical scar well-healed and healthy- appearing without dehiscence.) - Extremities Extremities: No deformity, No edema, No calf tenderness / cord, Other (Moderately limited range of motion, secondary to pain. Tenderness over mid hamstrings area. 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, Normal speech - Psych Psych: Normal mood, Normal affect Results - Vitals Vitals: Vital Signs - 24 hr 02/03/21 02/03/21 13:30 14:11 Temperature 36.7 C Heart Rate 55 L 56 L Respiratory 18 16 Rate Blood Pressure 137/48 H 153/56 H O2 Saturation 98 99 Oxygen O2 Source Room air - Rads (name of study) L knee XR Radiology: Final report received, EMP read indepedently, See rad report (nad) PD MEDICAL DECISION MAKING - ED course Complexity details: reviewed old records, reviewed results, re-evaluated patient, considered differential, d/w patient ED course: I had a long discussion with this patient regarding her mechanism injury and onset of symptoms. The patient was very fixated on the idea of a clot and kept referring to the fact that she had been "really scared" when this happened. I did not feel at all that her onset of symptoms and findings were indicative of a DVT, as she had been feeling completely normal without any signs of DVT in the time leading up to this injury including this morning. The patient symptoms were much more indicative of a hamstring strain. The patient was confused about this because these are the same exercises that she has been doing for days, and I did discuss with her that although it is not clear exactly what caused the strain to happen during this particular round of exercises, her symptoms are not indicative of a DVT and I do not feel that a an ultrasound is indicated. The patient was not particularly happy about this, but we did get an x-ray to make sure that her prosthetic insertion sites look good, as well as the surrounding bone. She was given a dose of Toradol and complained of a little nausea, so she was also given some oral dissolving Zofran. Departure - Departure Disposition: 01 Home, Self Care Clinical Impression: Hamstring strain Qualifiers: Encounter type: initial encounter Laterality: right Qualified Code(s): S76.311A - Strain of muscle, fascia and tendon of the posterior muscle group at thigh level, right thigh, initial encounter Condition: Stable Instructions: ED Strain Muscle Ext Prescriptions: Cyclobenzaprine [Flexeril] 10 mg PO TID PRN #20 tablet PRN Reason: Spasms Ibuprofen [Motrin] 800 mg PO Q8H PRN #30 tablet PRN Reason: PAIN &/OR FEVER Comments: Your x-ray series looks good. There is no evidence of any problem with your prosthesis. The history of the onset of your symptoms does not in any way indicate a blood clot. Most likely, you strained your hamstrings during your exercises this morning and some of the inflammatory chemicals and fluid are making their way down your leg. This can cause pain and sometimes spasm in more distant areas. It is important that you keep moving to keep your leg from tightening up and also, to retain some of the progress you have made with your exercises. If it is too hard to walk with just a cane, you may use the walker until your leg is feeling better. You may talk to your orthopedist about working with a physical therapist to continue exercising in a way that will not stress the strained muscle. Please take ibuprofen and the muscle relaxer to help with your symptoms. You may use ice and heat and stretching also to help with the stiffness and pain.
--- NOTE | 2021-02-03 14:55 | XRAY Report ---
PROCEDURE: Knee 3 View LT INDICATIONS: pain/injury after knee replacement TECHNIQUE: 2 views of the left knee(s) were acquired. COMPARISON: X-ray knee 01/05/2021 FINDINGS: Bones: No fractures or dislocations. No suspicious bony lesions. Knee arthroplasty is present. Brady dware is intact without evidence of hardware fracture or periprosthetic lucency to suggest loosening. Soft tissues: No joint effusion. No suspicious soft tissue calcifications. IMPRESSION: Stable appearance of knee arthroplasty. Reviewed by: Shyanne Valente MD on 02/03/2021 2:54 PM PST Approved by: Shyanne Valente MD on 02/03/2021 2:54 PM PST Station ID: [id number]
== END 2021-02-03 16:04 | disposition home or self-care (01) ==
LOC: ED 13:16
DX: S76.312A Strain of muscle, fascia and tendon of the posterior muscle group at thigh level, left thigh, initial encounter (principal); S80.02XA Contusion of left knee, initial encounter; X50.9XXA Other and unspecified overexertion or strenuous movements or postures, initial encounter; Y93.B9 Activity, other involving muscle strengthening exercises; T39.8X5A Adverse effect of other nonopioid analgesics and antipyretics, not elsewhere classified, initial encounter; R11.0 Nausea; Y92.538 Other ambulatory health services establishments as the place of occurrence of the external cause; I10 Essential (primary) hypertension
CPT/HCPCS: 73562; 96372; 99283; Q0162

== ENCOUNTER 2021-03-12 10:56 | Outpatient (CLI) | payer MEDICARE, OTHER ==
[2021-03-12 15:11] LABS: BASOPHILS # (AUTO) 0.1 10^3/uL (0.0-0.1); BASOPHILS % (AUTO) 1.2 %; EOSINOPHILS # (AUTO) 0.4 10^3/uL (0.0-0.7); EOSINOPHILS % (AUTO) 7.8 %; HGB - HEMOGLOBIN 11.8 g/dL (12.0-16.0); LYMPHOCYTES # (AUTO) 1.1 10^3/uL (1.5-3.5); LYMPHOCYTES % (AUTO) 22.5 %; MEAN CORPUSCULAR HEMOGLOBIN 28.8 pg (27.0-31.0); MEAN CORPUSCULAR HGB CONC 31.9 g/dL (32.0-36.0); MEAN CORPUSCULAR VOLUME 90.2 fL (81.0-99.0); MONOCYTES # (AUTO) 0.6 10^3/uL (0.0-1.0); MONOCYTES % (AUTO) 11.3 %; NEUTROPHILS # (AUTO) 2.8 10^3/uL (1.5-6.6); PLT - PLATELET COUNT 266 10^3/uL (130-450); RED CELL DISTRIBUTION WIDTH 13.2 % (12.0-15.0)
[2021-03-12 15:23] LABS: ALBUMIN 3.4 g/dL (3.2-5.5); ALKALINE PHOSPHATASE 87 IU/L (42-121); ALT ALANINE AMINOTRANSFERASE 15 IU/L (10-60); AST ASPARTATE AMINOTRANSFERASE 20 IU/L (10-42); BILIRUBIN,TOTAL 0.6 mg/dL (0.2-1.0); BUN - BLOOD UREA NITROGEN 13 mg/dL (6-20); CARBON DIOXIDE - CO2 26 mmol/L (21-32); CHLORIDE 103 mmol/L (101-111); CHOLESTEROL 176 mg/dL; CREATININE 0.7 mg/dL (0.4-1.0); GFR - MDRD 81 (>89); GLUCOSE 141 mg/dL (70-100); HDL CHOLESTEROL 58 mg/dL; LDL CHOLESTEROL,CALCULATED 102 mg/dL; LDL/HDL RATIO 1.8 (<4.4); POTASSIUM 4.1 mmol/L (3.5-5.0); SODIUM 137 mmol/L (135-145); TOTAL PROTEIN 6.8 g/dL (6.7-8.2); TRIGLYCERIDES 82 mg/dL; VLDL CHOLESTEROL 16 mg/dL
[2021-03-12 15:31] LABS: THYROID STIMULATING HORMONE 1.38 uIU/mL (0.34-5.60)
== END 2021-03-12 10:57 | disposition home or self-care (01) ==
LOC: LAB.S 10:56
PROVIDERS: ATTEND Registered Nurse
DX: I10 Essential (primary) hypertension (principal); E11.9 Type 2 diabetes mellitus without complications; E03.9 Hypothyroidism, unspecified; E78.5 Hyperlipidemia, unspecified
CPT/HCPCS: 36415; 80053; 80061; 83721; 84443; 85025

== ENCOUNTER 2021-04-05 08:36 | Outpatient (CLI) | payer MEDICARE, OTHER ==
[2021-04-05 15:42] LABS: CALCIUM 9.2 mg/dL (8.5-10.3); CREATININE 0.8 mg/dL (0.4-1.0); POTASSIUM 4.1 mmol/L (3.5-5.0)
== END 2021-04-05 08:37 | disposition home or self-care (01) ==
LOC: LAB.S 08:36
PROVIDERS: ATTEND Registered Nurse
DX: R73.9 Hyperglycemia, unspecified (principal)
CPT/HCPCS: 36415; 80048

== ENCOUNTER 2021-04-05 08:38 | Outpatient (CLI) | payer MEDICARE, OTHER ==
--- NOTE | 2021-04-06 08:45 | Mammography Report ---
BILATERAL DIGITAL SCREENING MAMMOGRAM 3D/2D: 04/05/2021 CLINICAL: Family history of breast cancer. Comparison is made to exams dated: 01/20/2020 mammogram, 01/15/2019 mammogram, and 01/12/2016 mammogr am - [facility]. There are scattered fibroglandular elements in both breasts. No significant masses, calcifications, or other findings are seen in either breast. There has been no significant interval change. IMPRESSION: NEGATIVE There is no mammographic evidence of malignancy. A 1 year screening mammogram is recommended. This exam was interpreted at Station ID: [id number]. NOTE: For mammograms, a report in lay terms will be sent to the patient. Approximately 15% of breast malignancies will not be visualized mammographically. In the management of a palpable breast mass, a negative mammogram must not discourage biopsy of a clinically suspicious lesion. Electronically Signed By: Michael Perry M.D. ar/[email or web address]:04/05/2021 13:55:24 ACR BI-RADS Category 1: Negative 3341F PARENCHYMAL PATTERN: (A) - The breast(s) demonstrate(s) scattered fibroglandular densities. BI-RADS CATEGORY: (1) - 1 RECOMMENDATION: (ANNUAL) - Recommend routine annual screening mammography. [id number] 1 year screening LATERALITY: (B)
== END 2021-04-05 08:39 | disposition home or self-care (01) ==
LOC: DI.S 08:38
PROVIDERS: ATTEND Registered Nurse
DX: Z12.31 Encounter for screening mammogram for malignant neoplasm of breast (principal); Z80.3 Family history of malignant neoplasm of breast

== ENCOUNTER 2021-11-25 08:00 | Outpatient (CLI) | payer MEDICARE, OTHER ==
--- NOTE | 2021-11-25 16:12 | XRAY Report ---
PROCEDURE: Knee 4 View LT INDICATIONS: LEFT KNEE ARTHROPLASTY F/U TECHNIQUE: 4 views of the left knee and one view of the right knee were acquired. COMPARISON: Left knee radiographs 02/03/2021 FINDINGS: Bones: Postsurgical changes are again seen from a left total knee arthroplasty. Hardware components are seen in stable positions. No perihardware fracture. Mild heterotopic ossifications are seen media l to the femorotibial joint line. A right knee arthroplasty is also imaged. Soft tissues: Moderate joint effusion. No suspicious soft tissue calcifications. IMPRESSION: Stable postsurgical changes from left knee arthroplasty. No acute osseous abnormality. M oderate left knee effusion. Reviewed by: Michael Perry MD on 11/25/2021 4:11 PM PDT Approved by: Michael Perry MD on 11/25/2021 4:11 PM PDT Station ID: [id number]
== END 2021-11-25 23:59 | disposition home or self-care (01) ==
LOC: DI.WOS 08:00
PROVIDERS: ATTEND Orthopaedic Surgery
DX: Z96.652 Presence of left artificial knee joint (principal); M25.462 Effusion, left knee

== ENCOUNTER 2021-12-17 08:31 | Outpatient (CLI) | payer MEDICARE, OTHER ==
[2021-12-17 14:55] LABS: BASOPHILS # (AUTO) 0.1 10^3/uL (0.0-0.1); BASOPHILS % (AUTO) 0.9 %; EOSINOPHILS # (AUTO) 0.4 10^3/uL (0.0-0.7); EOSINOPHILS % (AUTO) 7.4 %; HCT - HEMATOCRIT 39.9 % (37.0-47.0); HGB - HEMOGLOBIN 12.8 g/dL (12.0-16.0); LYMPHOCYTES # (AUTO) 1.5 10^3/uL (1.5-3.5); LYMPHOCYTES % (AUTO) 27.9 %; MEAN CORPUSCULAR HEMOGLOBIN 28.8 pg (27.0-31.0); MEAN CORPUSCULAR HGB CONC 32.1 g/dL (32.0-36.0); MEAN CORPUSCULAR VOLUME 89.9 fL (81.0-99.0); MEAN PLATELET VOLUME 11.7 fL (7.9-10.8); MONOCYTES # (AUTO) 0.5 10^3/uL (0.0-1.0); MONOCYTES % (AUTO) 9.6 %; NEUTROPHILS # (AUTO) 2.9 10^3/uL (1.5-6.6); NEUTROPHILS % (AUTO) 53.8 %; PLT - PLATELET COUNT 249 10^3/uL (130-450); RED BLOOD COUNT 4.44 10^6/uL (4.20-5.40); WHITE BLOOD COUNT 5.3 x10^3/uL (4.8-10.8)
[2021-12-17 15:23] LABS: ALBUMIN 3.8 g/dL (3.2-5.5); ALBUMIN/GLOBULIN RATIO 1.2 (1.0-2.2); ALKALINE PHOSPHATASE 87 IU/L (42-121); ALT ALANINE AMINOTRANSFERASE 15 IU/L (10-60); AST ASPARTATE AMINOTRANSFERASE 18 IU/L (10-42); BILIRUBIN,TOTAL 0.6 mg/dL (0.2-1.0); BUN - BLOOD UREA NITROGEN 14 mg/dL (6-20); CALCIUM 9.3 mg/dL (8.5-10.3); CARBON DIOXIDE - CO2 28 mmol/L (21-32); CHLORIDE 103 mmol/L (101-111); CHOL/HDL RATIO 3.2 (<4.4); CHOLESTEROL 177 mg/dL; CREATININE 0.7 mg/dL (0.4-1.0); GFR - MDRD 81 (>89); GLUCOSE 142 mg/dL (70-100); HDL CHOLESTEROL 55 mg/dL; LDL CHOLESTEROL,CALCULATED 106 mg/dL; LDL/HDL RATIO 1.9 (<4.4); POTASSIUM 3.9 mmol/L (3.5-5.0); SODIUM 139 mmol/L (135-145); TOTAL PROTEIN 6.9 g/dL (6.7-8.2); TRIGLYCERIDES 82 mg/dL; VLDL CHOLESTEROL 16 mg/dL
[2021-12-17 15:33] LABS: THYROID STIMULATING HORMONE 1.1 uIU/mL (0.34-5.60)
== END 2021-12-17 08:32 | disposition home or self-care (01) ==
LOC: LAB.S 08:31
PROVIDERS: ATTEND Registered Nurse
DX: I10 Essential (primary) hypertension (principal); E11.9 Type 2 diabetes mellitus without complications; E03.9 Hypothyroidism, unspecified; E78.5 Hyperlipidemia, unspecified
CPT/HCPCS: 36415; 80053; 80061; 83721; 84443; 85025

== ENCOUNTER 2021-12-30 16:57 | Outpatient (CLI) | payer MEDICARE, OTHER ==
--- NOTE | 2021-12-31 11:30 | XRAY Report ---
PROCEDURE: Foot 2 View RT INDICATIONS: RIGHT FOOT PAIN TECHNIQUE: 2 views of the foot were acquired. COMPARISON: None FINDINGS: Bones: No fractures or dislocations. There are severe degenerative changes at the tarsometatarsal ar ticulations 2 through 4 including subcortical cystic change and possible subcortical erosion. There i s mild increased sclerosis and loss of joint space. There is probable pes planus deformity although w eightbearing view was not acquired. Moderate plantar calcaneal spur. No suspicious bony lesions. Soft tissues: No tibiotalar joint effusion. Achilles tendon appears normal. Tiny calcification adj acent to the plantar calcaneal spur. IMPRESSION: 1. Severe midfoot degenerative changes (specifically second through fourth tarsometatarsal joints). 2. Probable pes planus deformity, confirmed with weightbearing lateral radiograph. 3. Plantar calcaneal spur and trace adjacent calcification. Possible trace plantar fasciitis. Reviewed by: Sharonda Riddle MD on 12/31/2021 10:29 AM [facility] Approved by: Sharonda Riddle MD on 12/31/2021 10:29 AM [facility] Station ID: [id number]
== END 2021-12-30 16:58 | disposition home or self-care (01) ==
LOC: DI.S 16:57
PROVIDERS: ATTEND Registered Nurse
DX: M19.071 Primary osteoarthritis, right ankle and foot (principal); M77.31 Calcaneal spur, right foot

== ENCOUNTER 2022-04-05 13:02 | Outpatient (CLI) | payer MEDICARE, OTHER ==
--- NOTE | 2022-04-06 11:26 | Mammography Report ---
BILATERAL DIGITAL SCREENING MAMMOGRAM 3D/2D: 04/05/2022 CLINICAL: Routine screening. Family history of breast cancer. Comparison is made to exams dated: 04/05/2021 mammogram, 01/20/2020 mammogram, and 01/15/2019 mammogr am - [facility]. There are scattered areas of fibroglandular density in both breasts (category b / 25%-50% glandular t issue). No significant masses, calcifications, or other findings are seen in either breast. There has been no significant interval change. IMPRESSION: NEGATIVE There is no mammographic evidence of malignancy. A 1 year screening mammogram is recommended. Based on the Tyrer Cuzick model (a risk assessment model) the patients lifetime risk is 4.1% and her 10 year risk is 0.0%. According to the ACR, ACS, and NCCN guidelines, an annual breast MRI exam damien g with mammogram is recommended if the patients lifetime risk is 20% or greater. This exam was interpreted at Station ID: [id number]. NOTE: For mammograms, a report in lay terms will be sent to the patient. Approximately 15% of breast malignancies will not be visualized mammographically. In the management of a palpable breast mass, a negative mammogram must not discourage biopsy of a clinically suspicious lesion. Electronically Signed By: Santosh [email or web address]:04/05/2022 17:14:01 ACR BI-RADS Category 1: Negative 3341F PARENCHYMAL PATTERN: (A) - The breast(s) demonstrate(s) scattered fibroglandular densities. BI-RADS CATEGORY: (1) - 1 RECOMMENDATION: (ANNUAL) - Recommend routine annual screening mammography. [id number] 1 year screening LATERALITY: (B)
== END 2022-04-05 13:03 | disposition home or self-care (01) ==
LOC: DI.S 13:02
PROVIDERS: ATTEND Registered Nurse
DX: Z12.31 Encounter for screening mammogram for malignant neoplasm of breast (principal); Z80.3 Family history of malignant neoplasm of breast

== ENCOUNTER 2022-06-20 08:00 | Outpatient (CLI) | payer MEDICARE, OTHER | END 2022-06-20 23:59 | disposition home or self-care (01) | LOC: LAB 08:00 | PROVIDERS: ATTEND Registered Nurse | DX: R19.7 Diarrhea, unspecified (principal) | CPT/HCPCS: 87045; 87046; 87177; 87427 ==

== ENCOUNTER 2022-08-29 08:00 | Outpatient (CLI) | payer MEDICARE, OTHER ==
--- NOTE | 2022-08-29 21:14 | XRAY Report ---
PROCEDURE: Hip w/Pelvis 2-3V LT INDICATIONS: LEFT HIP PAIN TECHNIQUE: AP pelvis with lateral view of the left hip. COMPARISON: Left hip radiographs 03/30/2020 FINDINGS: Bones: No fractures or dislocations. No suspicious bony lesions. Mild degenerative changes are se en in the hips bilaterally. Prominent degenerative changes are seen in the included lumbar spine. The re are also degenerative changes at the sacroiliac joints. Soft tissues: No suspicious soft tissue calcifications or masses. IMPRESSION: 1.Mild symmetric degenerative changes in the hips, not significantly changed. 2.Degenerative changes are noted in the included spine. 3.Mild degenerative changes at the sacroiliac joints and pubic symphysis. Reviewed by: Michael Perry MD on 08/29/2022 9:12 PM PDT Approved by: Michael Perry MD on 08/29/2022 9:12 PM PDT Station ID: [id number]
== END 2022-08-29 23:59 | disposition home or self-care (01) ==
LOC: DI.S 08:00
PROVIDERS: ATTEND Physician Assistant Medical
DX: M16.0 Bilateral primary osteoarthritis of hip (principal); M47.816 Spondylosis without myelopathy or radiculopathy, lumbar region; M47.898 Other spondylosis, sacral and sacrococcygeal region

== ENCOUNTER 2022-08-29 08:00 | Outpatient (CLI) | payer MEDICARE, OTHER | END 2022-08-29 23:59 | disposition home or self-care (01) | LOC: LAB.S 08:00 | PROVIDERS: ATTEND Physician Assistant Medical | DX: R19.7 Diarrhea, unspecified (principal) | CPT/HCPCS: 82962 ==

== ENCOUNTER 2022-10-07 12:48 | Outpatient (CLI) | payer MEDICARE, OTHER ==
--- NOTE | 2022-10-07 15:27 | DEXA Report ---
PROCEDURE: Dexa Spine and/or Hip INDICATIONS: OSTEOPENIA TECHNIQUE: Dual energy x-ray absorptiometry (DXA) was performed on a [email or web address] System. Regions measur ed are the AP Spine, femoral neck, and if needed forearm. COMPARISON: DEXA 09/03/2015 FINDINGS: Lumbar Spine: Bone Mineral Density 1.320 g/cm/cm,T score 1.2. Since the most recent prior study, there has been a statistically significant increase in bone mineral density by 7.5 percent. Left Femoral Neck: Bone Mineral Density 0.716 g/cm/cm, T score -2.3. Left Hip: Bone Mineral Density 0.782 g/cm/cm,T score -1.8. Since the most recent prior study, there has been a statistically significant decrease in bone mineral density by 15.7 percent. (T score greater or equal to -1.0: NORMAL) (T score from -1.1 to -2.4: OSTEOPENIA) (T score less than or equal to -2.5 to: OSTEOPOROSIS) Impression: By WHO criteria, this patient has low bone density (osteopenia). Interval statistical increase in bone minteral density of the lumbar spine. Interval statistical decr ease in bone minteral density of the hip. Patients with diagnosis of osteoporosis or osteopenia should have regular bone mineral density assess ment. For those eligible for Medicare, routine testing is allowed once every 2 years. Testing frequ ency can be increased for patients who have rapidly progressing disease or for those who are receivin g medical therapy to restore bone mass. Reviewed by: Michael Perry MD on 10/07/2022 3:26 PM PDT Approved by: Michael Perry MD on 10/07/2022 3:26 PM PDT Station ID: [id number]
== END 2022-10-07 12:49 | disposition home or self-care (01) ==
LOC: DI 12:48
PROVIDERS: ATTEND Physician Assistant Medical
DX: M85.80 Other specified disorders of bone density and structure, unspecified site (principal)

== ENCOUNTER 2022-12-02 08:29 | Outpatient (CLI) | payer MEDICARE, OTHER ==
--- NOTE | 2022-12-02 11:15 | MRI Report ---
PROCEDURE: LUMBAR SPINE WO INDICATIONS: LUMBAR STENOSIS TECHNIQUE: Noncontrast sagittal T1 spin echo and T2 fast echo, sagittal STIR, axial T1 and T2 fast spin echo thr ough the lumbar spine. In cases with scoliosis, additional coronal T2 fast spin echo may be performe d. COMPARISON: None. FINDINGS: Image quality: Excellent. Alignment and Curvature: There is normal bony alignment. Bone Marrow: Marrow is of normal overall signal. No acute vertebral body compression fractures. Spinal Cord: Conus medullaris terminates at the T12-L1 level. Visualized cord demonstrates normal s ignal and size. Paraspinous Soft Tissues: No paravertebral masses. T12-L1: Disc bulge. No canal stenosis or foraminal stenosis. L1-L2: Moderate to severe disc height loss. Disc bulge. Facet and ligament hypertrophy. Borderline canal stenosis. No significant foraminal stenosis. L2-L3: Severe chronic disc height loss. Posterior disc plus osteophyte. Facet hypertrophy. Mild to moderate canal stenosis. Mild to moderate bilateral foraminal stenosis. L3-L4: Moderate to severe chronic disc height loss. Posterior disc plus osteophyte. Facet hypertrop hy. Mild canal stenosis. Moderate bilateral foraminal stenosis. Mild flattening deformity on the exit ing left L3 nerve root. L4-L5: Moderate to severe chronic disc height loss. Posterior disc plus osteophyte. Facet hypertrop hy. Moderate canal stenosis. Moderate to severe right foraminal narrowing and severe left foraminal n arrowing with bilateral foraminal L4 nerve root impingement. L5-S1: Chronic severe disc height loss. Posterior disc bulge. Facet hypertrophy. Mild canal stenosis. Mild to moderate right foraminal narrowing. Moderate to severe left foraminal narrowing with left fo raminal L5 nerve root impingement. IMPRESSION: 1. Multilevel degenerative disc space loss and multilevel facet arthropathy. 2. Canal stenosis is mild to moderate at L2-L3, mild at L3-L4, moderate at L4-L5, and mild at L5-S1. 3. Multilevel foraminal narrowing as described above. Findings include moderate to severe right domenica inal narrowing and severe left foraminal narrowing at L4-L5, as well as moderate to severe left domenica inal narrowing at L5-S1. There is foraminal nerve root impingement at these levels. Reviewed by: yMke Foster MD on 12/02/2022 11:13 AM PDT Approved by: Myke Foster MD on 12/02/2022 11:13 AM PDT Station ID: [id number]
== END 2022-12-02 08:30 | disposition home or self-care (01) ==
LOC: DI 08:29
PROVIDERS: ATTEND Orthopaedic Surgery Orthopaedic Surgery of the Spine
DX: M47.816 Spondylosis without myelopathy or radiculopathy, lumbar region (principal); M48.061 Spinal stenosis, lumbar region without neurogenic claudication; M48.07 Spinal stenosis, lumbosacral region

== ENCOUNTER 2022-12-06 13:19 | Outpatient (CLI) | payer MEDICARE, OTHER | END 2022-12-06 13:20 | disposition critical access hospital (66) | LOC: EMS 13:19 | DX: R07.9 Chest pain, unspecified (principal) | CPT/HCPCS: A0425; A0429 ==

== ENCOUNTER 2022-12-06 13:44 | Emergency (ER) | payer MEDICARE, OTHER ==
--- NOTE | 2022-12-06 14:03 | ED Physician Documentation ---
History of Present Illness - Stated complaint Stated Complaint: CP - Additonal information Additional information: 77-year-old female presents emergency department for evaluation of sudden onset sharp left-sided chest pain with radiation to her arm. It occurred when she was simply putting a puzzle together. She denies any radiation to the back, nausea or vomiting. EMS was summoned they administered 325 of aspirin and 1 nitroglycerin. On presentation to the emergency department she reports her pain is nearly resolved. Patient does have a history of hypertension but no tobacco use. 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 Review of Systems Constitutional: denies: Fever Cardiac: reports: Chest pain / pressure Respiratory: denies: Dyspnea, Cough GI: reports: Reviewed and negative : reports: Reviewed and negative Skin: reports: Reviewed and negative PD PAST MEDICAL HISTORY - Past Medical History Cardiovascular: Hypertension Respiratory: None Neuro: None Endocrine/Autoimmune: HyPOthyroidism GI: GERD, Ulcers, Diverticulitis, Other (diverticulosis, celieac disease on EGD) ETCHED CIRCUIT PROCESSOR: Endometriosis (treated w hyster 1983), Other () : Incontinence (seen by [facility] 2005, and Danielito Clayton 2010) HEENT: Chronic vision loss, Chronic sinusitis Psych: Anxiety Musculoskeletal: Osteoarthritis, Other Derm: Other (dermatitis herpetiformis) - Past Surgical History Past Surgical History: Yes General: Cholecystectomy, Appendectomy, Colonoscopy, EGD Ortho: Knee replacement, Carpal Tunnel surgery /ETCHED CIRCUIT PROCESSOR: Hysterectomy, Other HEENT: Cataracts, Other - Present Medications Home Medications: Ambulatory Orders Medication Instructions Recorded Confirmed Calcium Carb/Mag Ox/Zinc Sulf 1 each PO DAILY 11/19/20 12/02/20 [Abw-Ojk-Bdnv 334-134-5 mg Tab] Calcium Carbonate/Vitamin D3 1 each PO DAILY 11/19/20 12/02/20 [Calcium 600-Vit D3 200 Tablet] Cetirizine [ZyrTEC] 10 mg PO DAILY 11/19/20 11/19/20 Citalopram Hydrobromide [Celexa] 20 mg PO DAILY 11/19/20 12/02/20 Estrogens, Conjugated Cream 1 gm VG QPM 11/19/20 12/02/20 [Premarin Cream] Gabapentin [Neurontin] 600 mg PO QPM 11/19/20 12/02/20 Lactobacillus Combination No.4 1 each PO DAILY 11/19/20 12/02/20 [Probiotic] Levothyroxine Sodium [Synthroid] 100 mcg PO DAILY 11/19/20 12/02/20 Lidocaine Patch 5% [Lidoderm Patch] 1 each TOP DAILY 11/19/20 11/19/20 Loperamide [Imodium] 4 mg PO DAILY 11/19/20 11/19/20 Multivitamin 1 each PO DAILY 11/19/20 12/02/20 Pantoprazole Sodium 20 mg PO BID 11/19/20 12/02/20 carvediloL [Coreg] 3.125 mg PO BID 11/19/20 12/02/20 Cyclobenzaprine [Flexeril] 10 mg PO TID PRN #20 tablet 02/03/21 Ibuprofen [Motrin] 800 mg PO Q8H PRN #30 tablet 02/03/21 - Allergies Allergies/Adverse Reactions: Allergies Allergy/AdvReac Type Severity Reaction Status Date / Time gluten Allergy Hives Verified 12/06/22 14:01 Penicillins Allergy Hives Verified 12/06/22 14:01 soy Allergy Hives Verified 12/06/22 14:01 Sulfa (Sulfonamide Allergy Rash Verified 12/06/22 14:01 Antibiotics) - Social History Does the pt smoke?: No Smoking Status: Never smoker Does the pt drink ETOH?: Yes Does the pt have substance abuse?: No - Immunizations Immunizations are current?: Yes - POLST Patient has POLST: No POLST Status: Full Code PD ED PE NORMAL - General General: Alert and oriented X 3, No acute distress - Cardiac Cardiac: RRR, No murmur, Strong equal pulses - Respiratory Respiratory: No respiratory distress, Clear bilaterally - Abdomen Abdomen: Normal bowel sounds, Soft - Derm Derm: Warm and dry - Neuro Neuro: Alert and oriented X 3 Eye Opening: Spontaneous Motor: Obeys Commands Verbal: Oriented GCS Score: 15 Results - Vitals Vitals: Vital Signs - 24 hr 12/06/22 12/06/22 12/06/22 13:59 14:07 14:31 Temperature 37 C 37.0 C Heart Rate 62 62 62 Respiratory 16 16 17 Rate Blood Pressure 135/77 H 135/77 H 125/60 O2 Saturation 98 98 98 12/06/22 12/06/22 12/06/22 15:01 15:30 16:00 Temperature Heart Rate 65 66 60 Respiratory 20 18 18 Rate Blood Pressure 137/72 H 136/74 H 96/77 O2 Saturation 96 98 99 12/06/22 12/06/22 16:30 17:00 Temperature 36.5 C Heart Rate 66 66 Respiratory 18 16 Rate Blood Pressure 100/80 98/70 O2 Saturation 98 98 Oxygen O2 Source Room air - EKG (time done) 1358 EKG releavant findings:: EKG personally interpreted by author of this note. Relevant findings are: Rate: Rate (enter#) (59) Rhythm: NSR [place]: LAD Intervals: Normal [place] QRS: Normal Ischemia: Normal ST segments Compare to prior EKG: Unchanged from prior EKG Computer interpretation: Agree with computer - Labs Labs: Laboratory Tests 12/06/22 12/06/22 12/06/22 14:15 14:15 16:05 WBC 5.8 RBC 4.43 Hgb 13.4 Hct 40.7 MCV 91.9 MCH 30.2 MCHC 32.9 RDW 13.4 Plt Count 243 MPV 11.0 H Neut # (Auto) 3.6 Lymph # (Auto) 1.3 L [place] # (Auto) 0.6 Eos # (Auto) 0.3 Baso # (Auto) 0.1 Absolute Nucleated RBC 0.00 Nucleated RBC % 0.0 Sodium 140 Potassium 4.0 Chloride 106 Carbon Dioxide 28 Anion Gap 6.0 BUN 12 Creatinine 0.7 Estimated GFR (MDRD) 81 L Glucose 105 H Calcium 9.2 Total Bilirubin 0.4 AST 18 ALT 14 Alkaline Phosphatase 82 Troponin I High Sens 3.8 3.3 Total Protein 6.7 Albumin 3.9 Globulin 2.8 Albumin/Globulin Ratio 1.4 Lipase 11 TSH 0.49 Free T4 Direct 0.85 - Rads (name of study) cxr Relevant Findings:: Final report received (no acute cardiopulmonary process) PD Medical Decision Making - ED course Complexity details: reviewed results, re-evaluated patient, d/w patient ED course: 77-year-old female presents emergency department for evaluation of acute left sided breast chest pain that radiated to her axilla began suddenly when she was placing a puzzle together. She called EMS and on presentation was found alert without hypertension or tachycardia. EKG was normal sinus rhythm. She received 325 mg of aspirin and nitroglycerin x1. On presentation the emergency department her chest pain had resolved. EKG today per my interpretation is nonischemic. 2 troponins were also negative. A chest x-ray showed no findings of pneumonia, pneumothorax or pleural effusion. The rest of her blood chemistry was essentially unremarkable for age. At this juncture patient does desire to be discharged home. Her heart score is 3 putting her at low risk of 30 day MACE. She is advised however given her age to follow closely with the PCP as she should be referred for stress test upcoming. She is advised to begin taking a daily 81 mg aspirin. Otherwise usual emergent return precautions were discussed for new or worsening symptoms. Departure - Departure Disposition: Home, Self Care Clinical Impression: Chest pain Qualifiers: Chest pain type: unspecified Qualified Code(s): R07.9 - Chest pain, unspecified Condition: Stable Record reviewed to determine appropriate education?: Yes Instructions: ED Chest Pain Atypical Unkn Cause Comments: As discussed at the bedside you are seen today for chest pain. Your EKG and chest x-ray did not show any worrisome findings. Your labs also showed no abnormalities including 2 troponin measurements. Please follow-up with your primary care provider. You should be urgently referred for a cardiac stress test. I do recommend you begin taking a daily 81 mg aspirin. Return immediately to the ER if you have any new or worsening symptoms.
[2022-12-06 14:21] LABS: BASOPHILS # (AUTO) 0.1 10^3/uL (0.0-0.1); EOSINOPHILS # (AUTO) 0.3 10^3/uL (0.0-0.7); EOSINOPHILS % (AUTO) 4.3 %; HCT - HEMATOCRIT 40.7 % (37.0-47.0); HGB - HEMOGLOBIN 13.4 g/dL (12.0-16.0); LYMPHOCYTES # (AUTO) 1.3 10^3/uL (1.5-3.5); LYMPHOCYTES % (AUTO) 23.1 %; MEAN CORPUSCULAR HEMOGLOBIN 30.2 pg (27.0-31.0); MEAN CORPUSCULAR HGB CONC 32.9 g/dL (32.0-36.0); MEAN CORPUSCULAR VOLUME 91.9 fL (81.0-99.0); MONOCYTES # (AUTO) 0.6 10^3/uL (0.0-1.0); MONOCYTES % (AUTO) 9.5 %; NEUTROPHILS # (AUTO) 3.6 10^3/uL (1.5-6.6); NEUTROPHILS % (AUTO) 61.9 %; PLT - PLATELET COUNT 243 10^3/uL (130-450); RED BLOOD COUNT 4.43 10^6/uL (4.20-5.40); RED CELL DISTRIBUTION WIDTH 13.4 % (12.0-15.0); WHITE BLOOD COUNT 5.8 x10^3/uL (4.8-10.8)
[2022-12-06 14:48] LABS: TROPONIN I HIGH SENSITIVITY 3.8 ng/L (2.3-14.8)
--- NOTE | 2022-12-06 14:53 | XRAY Report ---
PROCEDURE: Chest 1 View X-Ray INDICATIONS: Chest Pain TECHNIQUE: One view of the chest was acquired. COMPARISON: 03/10/2019 FINDINGS: Surgical changes and devices: None. Lungs and pleura: No pleural effusions or pneumothorax. Lungs are clear. Mediastinum: Mediastinal contours appear normal. Heart size is normal. Bones and chest wall: No suspicious bony lesions. Overlying soft tissues appear unremarkable. IMPRESSION: No acute cardiopulmonary process. Reviewed by: Santosh Chacon MD on 12/06/2022 2:52 PM PDT Approved by: Santosh Chacon MD on 12/06/2022 2:52 PM PDT Station ID: [id number]
[2022-12-06 14:58] LABS: THYROID STIMULATING HORMONE 0.49 uIU/mL (0.34-5.60)
[2022-12-06 15:39] LABS: ALBUMIN 3.9 g/dL (3.2-5.5); ALBUMIN/GLOBULIN RATIO 1.4 (1.0-2.2); BILIRUBIN,TOTAL 0.4 mg/dL (0.2-1.0); CALCIUM 9.2 mg/dL (8.5-10.3); CREATININE 0.7 mg/dL (0.6-1.3); TOTAL PROTEIN 6.7 g/dL (6.4-8.9)
[2022-12-06 17:23] VITALS: O2SAT 98
[2022-12-06 17:49] VITALS: BP 100/80
== END 2022-12-06 17:54 | disposition home or self-care (01) ==
LOC: EDUNIT# → ED 13:44
DX: R07.9 Chest pain, unspecified (principal); I10 Essential (primary) hypertension; E03.9 Hypothyroidism, unspecified; Z79.899 Other long term (current) drug therapy
CPT/HCPCS: 36415; 80053; 83690; 84439; 84443; 84484; 85025; 93005; 99283; 99284

== ENCOUNTER 2023-04-17 13:33 | Outpatient (CLI) | payer MEDICARE, OTHER ==
[2023-04-17 13:56] LABS: CALCIUM 9.6 mg/dL (8.5-10.3); CREATININE 0.8 mg/dL (0.6-1.3); POTASSIUM 4.3 mmol/L (3.5-4.5)
[2023-04-17 14:33] LABS: ESTIMATED AVERAGE GLUCOSE 151 mg/dL (70-100); HEMOGLOBIN A1c% 6.9 % (4.27-6.07)
== END 2023-04-17 13:34 | disposition home or self-care (01) ==
LOC: LAB 13:33
PROVIDERS: ATTEND Registered Nurse
DX: E11.9 Type 2 diabetes mellitus without complications (principal)
CPT/HCPCS: 36415; 80048; 83036

== ENCOUNTER 2023-06-02 14:27 | Outpatient (CLI) | payer MEDICARE, OTHER ==
--- NOTE | 2023-06-02 16:07 | XRAY Report ---
PROCEDURE: Hip w/Pelvis 2-3V LT INDICATIONS: LEFT HIP BURSITIS TECHNIQUE: 2 views of the hip were acquired. COMPARISON: 08/29/2022 FINDINGS: Bones: Mild to moderate left and mild right hip arthrosis. Lumbosacral degenerative changes also see n. No displaced fracture or dislocation. Soft tissues: No suspicious calcifications. IMPRESSION: Mild to moderate left and mild right hip arthrosis. No displaced fracture or dislocation. If there is high concern for further derangement, consider MRI evaluation. Reviewed by: Flex Lara MD on 06/02/2023 4:06 PM PDT Approved by: Flex Lara MD on 06/02/2023 4:06 PM PDT Station ID: [id number]
== END 2023-06-02 14:28 | disposition home or self-care (01) ==
LOC: DI 14:27
PROVIDERS: ATTEND Physician Assistant Surgical
DX: M16.12 Unilateral primary osteoarthritis, left hip (principal)

== ENCOUNTER 2023-07-21 10:12 | Outpatient (CLI) | payer MEDICARE, OTHER ==
[2023-07-21 15:20] LABS: CALCIUM 9.5 mg/dL (8.5-10.3); CREATININE 0.7 mg/dL (0.6-1.3); POTASSIUM 4.1 mmol/L (3.5-4.5)
[2023-07-21 16:19] LABS: CREATININE,URINE 116.8 mg/dL; MICROALBUM/CREATININE RATIO,UR 8.6 ug/mg (<30.0)
[2023-07-21 21:00] LABS: ESTIMATED AVERAGE GLUCOSE 174 mg/dL (70-100); HEMOGLOBIN A1c% 7.7 % (4.27-6.07)
== END 2023-07-21 10:13 | disposition home or self-care (01) ==
LOC: LAB.S 10:12
PROVIDERS: ATTEND Registered Nurse
DX: E11.9 Type 2 diabetes mellitus without complications (principal)
CPT/HCPCS: 36415; 80048; 82043; 82570; 83036

== ENCOUNTER 2023-11-08 10:04 | Outpatient (CLI) | payer MEDICARE, OTHER ==
[2023-11-08 10:40] LABS: CALCIUM 9.3 mg/dL (8.5-10.3); CREATININE 0.8 mg/dL (0.6-1.3); POTASSIUM 4.2 mmol/L (3.5-4.5)
[2023-11-08 12:21] LABS: ESTIMATED AVERAGE GLUCOSE 126 mg/dL (70-100)
== END 2023-11-08 10:05 | disposition home or self-care (01) ==
LOC: LAB 10:04
PROVIDERS: ATTEND Registered Nurse
DX: E11.9 Type 2 diabetes mellitus without complications (principal)
CPT/HCPCS: 36415; 80048; 83036